=== PATIENT | female | born 1985 | race Caucasian/White ===

== ENCOUNTER 2024-06-22 21:01 | Outpatient (REF) | payer OTHER, SELFPAY | END 2024-06-22 21:02 | disposition home or self-care (01) | LOC: LAB 21:01 | PROVIDERS: Visit Provider Physician Assistant | DX: Z01.419 Encounter for gynecological examination (general) (routine) without abnormal findings (principal) | CPT/HCPCS: 87624; 88175 ==

== ENCOUNTER 2024-06-30 08:15 | Outpatient (OUT) | payer OTHER, SELFPAY ==
--- NOTE | 2024-06-30 08:17 | MM_ITS ---
Patient Name: TERRELL AMBROSE MR#: [id number] : 1985 Exam Date: 06/30/2024 Ordering Doctor: HARPER Plaza . RADIOLOGY REPORT PROCEDURE: MM TOMOSYNTHESIS SCREENING BI COMPARISON: None. INDICATIONS: Screening Calculator Name NCI Breast Cancer Risk Assessment Tool 5 Year Breast Cancer Risk 0.60% Lifetime Breast Cancer Risk 10.20% Personal Breast Cancer No Personal Ovarian Cancer No Treatments None Family Cancers Aunt-maternal with breast cancer at age ~64. LOCATION: The [facility] BREAST COMPOSITION: The breasts are extremely dense, which lowers the sensitivity of mammography. FINDINGS: DIAGNOSTIC CATEGORY 2--BENIGN FINDING: Scattered benign-appearing lymph nodes are present. RIGHT BREAST: No significant suspicious finding. LEFT BREAST: No significant suspicious finding. RECOMMENDATIONS: ROUTINE MAMMOGRAM AND CLINICAL EVALUATION IN 12 MONTHS. PLEASE NOTE: A NORMAL MAMMOGRAM DOES NOT EXCLUDE THE POSSIBILITY OF BREAST CANCER. A CLINICALLY SUSPICIOUS PALPABLE LUMP SHOULD BE BIOPSIED. Dictated by: Elijah Kaye MD on 06/30/2024 at 09:14 Approved by: Elijah Kaye MD on 06/30/2024 at 09:15
== END 2024-06-30 08:16 | disposition home or self-care (01) ==
LOC: MAMMO 08:15
PROVIDERS: Visit Provider Physician Assistant
DX: Z12.31 Encounter for screening mammogram for malignant neoplasm of breast (principal); Z80.3 Family history of malignant neoplasm of breast
CPT/HCPCS: 77063; 77067

== ENCOUNTER 2024-09-20 07:05 | Emergency (ER) | payer OTHER, SELFPAY ==
[2024-09-20] VITALS (18 sets, daily range): BP systolic 108–118; BP diastolic 64–82; PULSE 73–94; TEMP 36.9; O2SAT 97–100; BMI 18.2
--- OUTSIDE RECORDS SUMMARY | 2024-09-20 07:17 | XMS_ITS | CCD ---
Author Organization [facility] Care Team Providers Care Line Operator Name Role Phone AUGUSTO ., DR SALAZAR Admitting Unavailable AUGUSTO ., DR SALAZAR Attending Unavailable AUGUSTO ., DR SALAZAR Consulting Unavailable GISELLA VELAZQUEZ Attending Unavailable Problems Problem Classification Problem Date Documented Date Episodic/Chronic Immunizations and screening for infectious disease (1 source) Encounter for screening for human papillomavirus (HPV); Translations: [ENC SCREENING HUMAN PAPILLOMAVIRUS] Onset: 01-12-2023 Episodic Other screening for suspected conditions (not mental disorders or infectious disease) (4 sources) Encounter for screening for malignant neoplasm of cervix; Translations: [ENC SCREENING MALIG NEOPLASM CERV] Onset: 01-09-2023 Episodic Results Test Name Value Interpretation Reference Range Facil ity PAP ACOG PANEL 2: 30 to 65on 01-16-2023 . . Normal [facility] Comment on above: Result Comment: Performed at: WB Performed By: #### [id number] #### [facility] [address] [address] [address] Gutierrez Gay Age Gdln ACOG Testing 30-65 Normal [facility] Comment on above: Performed By: #### [id number] #### [facility] [address] [address] [address] Gutierrez Gay DIAGNOSIS: Comment Normal [facility] Comment on above: Result Comment: NEGATIVE FOR INTRAEPITHE LIAL LESION OR MALIGNANCY. Performed at: WB Performed By: #### [id number] #### [facility] [address] [address] [address] Gutierrez Gay HPV Aptima Negative Normal Negative [facility] Comment on above: Result Comment: This nucleic acid amplif ication test detects fourteen high-risk HPV types (16,18,31,33,35,39,45,51,52,56,58,59,66,68) without differentiation. Performed at: =G Performed By: #### [id number] #### [facility] [address] [place] [address] Dr. Gutierrez aGy HPV Genotype Reflex Comment Normal [facility] Comment on above: Result Comment: Criteria not met, HPV Ge notype not performed. Performed at: WB Performed By: #### [id number] #### [facility] [address] [place] [address] Dr. Gutierrez Gay Methodology: Comment Normal [facility] Comment on above: Result Comment: This liquid based ThinPr ep(R) pap test was screened with the use of an image guided system. Performed at: WB Performed By: #### [id number] #### [facility] [address] [place] [address] Dr. Gutierrez Gay Note: Comment Normal [facility] Comment on above: Result Comment: The Pap smear is a scree radha test designed to aid in the detection of premalignant and malignant conditions of the uterine cervix. It is not a diagnostic procedure and should not be used as the sole means of detecting cervical cancer. Both false-positive and false-negative reports do occur. . Performed at: WB Performed By: #### [id number] #### [facility] [address] [place] [address] Dr. Gutierrez Gay Performed by: Comment Normal [facility] Comment on above: Result Comment: Bethany Suggs Cytocalvin chnologist (ASCP) Performed at: WB Performed By: #### [id number] #### [facility] [address] [place] [address] Dr. Gutierrez Gay Specimen adequacy: Comment Normal [facility] Comment on above: Result Comment: Satisfactory for evaluat ion. Performed at: WB Performed By: #### [id number] #### [facility] [address] [place] [address] Dr. Gutierrez Gay Encounters Encounter Date Encounter Type Care Provider Facility Start: 06-22-2024 End: 06-22-2024 ambulatory GISELLA VELAZQUEZ Not Available Start: 01-09-2023 End: 01-09-[address] MARTIN CASAS . Facility:[facility] Payers Date Payer Category Payer Unknown [id number] 1985 Unknown [id number] 1985 Unknown [id number] 1961 Unknown [id number] Summary Purpose Family History No Family History Records FoundNo Family History Records Found Advance Directives No Advanced Directives Records FoundNo Advanced Directives Records Found Additional Source Comments INFORMATION SOURCE (unrecogn ized section and content) DATE CREATED AUTHOR 01/21/2023 [facility] DATE CREATED AUTHOR AUTHORLucien BECK 06/23/[address] [facility] EPIC FOR RECORDS PERTAINING TO PATIENTS WHO ARE OR HAVE BEEN ENROLLED IN A CHEMICAL DEPENDENCY/SUBSTANCEABUSE PROGRAM, SOME INFORMATION MAY BE OMITTED. This clinical summary was aggregated from multiple sources. Caution should be exercised in using it in the provision of clinical care. This summary normalizes information from multiple sources, and as a consequence, information in this document may materially change the coding, format and clinical context of patient data. In addition, data may be omitted in some cases. CLINICAL DECISIONS SHOULD BE BASED ON THE PRIMARY CLINICAL RECORDS. [facility] [employer] provides no warranty or guarantee of the accuracy or completeness of information in this document.
--- NOTE | 2024-09-20 07:27 | ECG_ITS ---
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
--- NOTE | 2024-09-20 07:28 | XR_ITS ---
The [address] [address] Patient Name: TERRELL AMBROSE MRN: [id number] date: 1985 Sex: F Assigned Patient Location: ER Current Patient Location: ED.MAIN Accession/Order Number: [id number] Exam Date: 09/20/2024 08:03 Report Date: 09/20/2024 08:30 At the request of: ROSHNI PENA Procedure: XR chest 1V EXAM: XR chest 1V HISTORY: Syncope. COMPARISON: None. TECHNIQUE: AP erect portable chest radiograph performed. FINDINGS: The trachea is midline. The heart size is normal. The cardiomediastinal silhouette and hilar shadows are within normal limits. There is no consolidation, pleural effusion or pulmonary vascular congestion. There is no pneumothorax. The osseous structures are unremarkable. XR/XR chest 1V IMPRESSION: Unremarkable AP erect portable chest radiograph. Electronically authenticated by: VIELKA COLLADO Date: 09/20/2024 08:30
--- NOTE | 2024-09-20 07:28 | CT_ITS ---
The [address] [address] Patient Name: TERRELL AMBROSE MRN: [id number] date: 1985 Sex: F Assigned Patient Location: ER Current Patient Location: ED.[facility] Accession/Order Number: [id number] Exam Date: 09/20/2024 08:03 Report Date: 09/20/2024 08:30 At the request of: ROSHNI PENA Procedure: CT head/brain wo con CT head/brain wo con, 09/20/2024 8:03 AM EST INDICATION: Syncope, hit head COMPARISON: There is no appropriate prior study for comparison. TECHNIQUE: Axial CT images of the brain from skull base to vertex, including portions of the face and sinuses, were obtained without contrast . Multiplanar reformatted images were generated and reviewed as needed. Dose reduction techniques were achieved by using automated exposure control and/or adjustment of mA and/or kV according to patient size and/or use of iterative reconstruction technique. FINDINGS: The cerebral sulci as well as ventricular system are appropriate for age. There is no intracranial mass, mass effect, midline shift, intra or extra-axial fluid collection or hemorrhage. The visualized portions of orbits, mastoid air cells as well as paranasal sinuses are unremarkable. There is no suspicious osteolytic or osteoblastic lesion. CT/CT head/brain wo con IMPRESSION: No acute intracranial process is noted. Electronically authenticated by: GABRIELA BURNS Date: 09/20/2024 08:30
--- NOTE | 2024-09-20 07:29 | ED_ITS ---
HPI - Syncope General Chief Complaint: Syncope Stated Complaint: SYNCOPE/ GENERAL WEAKNESS Time Seen by Provider: 09/20/24 07:15 Source: patient Mode of arrival: walk-in Limitations: no limitations History of Present Illness HPI narrative: 39-year-old female presented for syncopal episode. Some of the history is obtained from her and some from her . He was in the index room when this happened. The patient woke up at approximately 6:00 and had gone down to the basement to get some laundry and should come back upstairs. Her heard a loud noise and went into the next room and she was laying on her back on a vinyl floor and had apparently hit her head. Initially she had some head pain but it is better now and she has no neck pain. She felt a little bit dizzy before it happened. 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 Her day had started off normally. She had taken a NyQuil tablet last night because of some congestion and had not taken any other medications. Related Data Home Medications ?Medication ?Instructions ?Recorded ?Confirmed No Known Home Medications 09/20/24 09/20/24 Allergies Allergy/AdvReac Type Severity Reaction Status Date / Time No Known Drug Allergies Allergy Verified 09/20/24 07:15 Review of Systems ROS Narrative A ten point review of systems is negative except as noted above. Positive for mild congestion. PFSH PFSH Social History Little interest or pleasure in doing things: not at all Feeling down, depressed, or hopeless: not at all Exam Narrative Exam Narrative: Nurses note and vital signs reviewed and patient is not hypoxic. General: The patient appears well and in no apparent distress. Patient is resting comfortably on cart. Skin: Warm, dry, no pallor noted. There is no rash noted. Head: Normocephalic, atraumatic; C-spine nontender Eye: Normal conjunctiva, no drainage Ears, Nose, Mouth, and Throat: oral mucosa is moist. Nares patent. Cardiovascular: Regular Rate and Rhythm Respiratory: Patient is in no distress, no accessory muscle use, lungs are clear to auscultation, no wheezing, rales or rhonchi Back: non-tender GI: Soft and nontender Musculoskeletal: The patient has no evidence of calf tenderness, no pitting edema, symmetrical pulses noted bilaterally Neurological: A&O x4, normal speech; upper and lower extremity strength intact Psychiatric: Cooperative Constitutional Vital Signs, click to edit/add: Last Vital Signs Temp 98.4 F 09/20/24 07:15 Pulse 73 09/20/24 09:10 Resp 18 09/20/24 09:21 BP 114/68 09/20/24 09:00 Pulse Ox 98 09/20/24 09:21 O2 Del Method Room Air 09/20/24 07:15 Course Vital Signs Vital signs: Vital Signs Pulse Oximetry 100 09/20/24 07:12 Temperature 98.4 F 09/20/24 07:15 Pulse Rate 73 09/20/24 09:10 Respiratory Rate 18 09/20/24 09:21 Blood Pressure 114/68 09/20/24 09:00 Pulse Oximetry 98 09/20/24 09:21 Oxygen Delivery Method Room Air 09/20/24 07:15 MDM - Syncope MDM Narrative Medical decision making narrative: Her workup including 2 sets of troponin is negative. She seems to be asymptomatic now other than a headache and is ambulatory with normal vital signs. She is able to be discharged home. Treatment diagnosis and follow-up were discussed with the patient and her . Differential Diagnosis Differential diagnosis: Likely syncope due to orthostatic hypotension, vasovagal syncope and dehydration (Cardiac dysrhythmia) Lab Data Attestation: I reviewed the patient's lab results. Labs: Lab Results 09/20/24 09/20/24 Range/Units 07:20 08:43 WBC 9.8 (4.0-11.0) 10^3/uL RBC 4.68 (4.20-5.40) 10^6/uL Hgb 14.8 (12.0-16.0) g/dL Hct 43.0 (36.0-48.0) % MCV 91.9 (81.0-99.0) fL MCH 31.6 (26.7-34.0) pg MCHC 34.4 (29.9-35.2) g/dL RDW 11.7 (11.0-15.0) % Plt Count 324 (150-450) 10^3/uL MPV 9.5 (9.5-13.5) fL Neut % (Auto) 73.4 (43.0-75.0) % Lymph % (Auto) 17.2 L (20.5-60.0) % [place] % (Auto) 7.6 (1.7-12.0) % Eos % (Auto) 1.3 (0.9-7.0) % Baso % (Auto) 0.3 (0.2-2.0) % Neut # (Auto) 7.2 H (1.4-6.5) 10^3/uL Lymph # (Auto) 1.7 (1.2-3.8) 10^3/uL [place] # (Auto) 0.7 (0.3-0.8) 10^3/uL Eos # (Auto) 0.1 (0.0-0.7) 10^3/uL Baso # (Auto) 0.0 (0.0-0.1) 10^3/uL Abs Immat Gran (auto) 0.02 (0.00-0.03) 10^3/uL Imm/Tot Granulo (auto) 0.2 (0.0-0.5) % Sodium 140 (136-145) mmol/L Potassium 3.5 (3.5-5.1) mmol/L Chloride 105 (98-107) mmol/L Carbon Dioxide 23.9 (21.0-32.0) mmol/L Anion Gap 14.6 BUN 9.0 (7.0-18.0) mg/dL Creatinine 0.82 (0.55-1.02) mg/dL Est GFR ( Amer) >60 (>=60 mL/min/1.73m^2) Est GFR (Non-Af Amer) >60 (>=60 mL/min/1.73m^2) BUN/Creatinine Ratio 11.0 Glucose 110 H (74-106) mg/dL Calcium 8.6 (8.5-10.1) mg/dL Troponin I High Sens 4.1 6.0 (4.0-51.3) pg/mL Serum HCG, Qual Negative (NEGATIVE) Imaging Data Chest x-ray: Radiologist's impression: ITS Impressions Chest X-Ray 09/20/24 07:28 IMPRESSION: Unremarkable AP erect portable chest radiograph. Electronically authenticated by: VIELKA COLLADO Date: 09/20/2024 08:[address] 09/20/24 07:28 IMPRESSION: No acute intracranial process is noted. Electronically authenticated by: GABRIELA BURNS Date: 09/20/2024 08:30 ECG Data Attestation: I personally reviewed and interpreted this ECG as follows: (EKG on my interpretation shows sinus rhythm with rate of 91 and no acute change) Discharge Plan Discharge Chief Complaint: Syncope Clinical Impression: Syncope Patient Disposition: Home, Self-Care Time of Disposition Decision: 09:24 Condition: Good Mode of Transportation: Private Vehicle Prescriptions / Home Meds: No Action No Known Home Medications Print Language: Polish Instructions: Syncope (ED) Referrals: Physician,Non-Staff, MD [Physician] - 1 week
[2024-09-20 07:35] LABS: Basophils Percent Auto 0.3 % (0.2-2.0); Eosinophils Absolute Auto 0.1 10^3/uL (0.0-0.7); Eosinophils Percent Auto 1.3 % (0.9-7.0); Hemoglobin 14.8 g/dL (12.0-16.0); Immature Granulocytes Abs Auto 0.02 10^3/uL (0.00-0.03); Immature Granulocytes Pct Auto 0.2 % (0.0-0.5); Lymphocytes Absolute Auto 1.7 10^3/uL (1.2-3.8); Lymphocytes Percent Auto 17.2 % (20.5-60.0); Mean Corpuscular HGB Conc 34.4 g/dL (29.9-35.2); Mean Corpuscular Hemoglobin 31.6 pg (26.7-34.0); Mean Corpuscular Volume 91.9 fL (81.0-99.0); Mean Platelet Volume 9.5 fL (9.5-13.5); Monocytes Absolute Auto 0.7 10^3/uL (0.3-0.8); Monocytes Percent Auto 7.6 % (1.7-12.0); Neutrophils Absolute Auto 7.2 10^3/uL (1.4-6.5); Neutrophils Percent Auto 73.4 % (43.0-75.0); Platelet Count 324 10^3/uL (150-450); Red Blood Count 4.68 10^6/uL (4.20-5.40); Red Cell Distribution Width 11.7 % (11.0-15.0); White Blood Count 9.8 10^3/uL (4.0-11.0)
[2024-09-20 07:45] LABS: HCG Qualitative NEGATIVE (NEGATIVE); Internal Control Within Normal Limits
[2024-09-20 07:46] LABS: Anion Gap 14.6; Calcium 8.6 mg/dL (8.5-10.1); Carbon Dioxide 23.9 mmol/L (21.0-32.0); Chloride 105 mmol/L (98-107); Estimated GFR (African America >60 (>=60 mL/min/1.73m^2); Estimated GFR (Non-African Ame >60 (>=60 mL/min/1.73m^2); Glucose 110 mg/dL (74-106); Potassium 3.5 mmol/L (3.5-5.1); Sodium 140 mmol/L (136-145)
[2024-09-20] MEDS: ONDANSETRON PF 4 MG/2 ML VIAL IV (07:48)
[2024-09-20 07:54] LABS: Troponin I High Sensitivity 4.1 pg/mL (4.0-51.3)
[2024-09-20] MEDS: ACETAMINOPHEN 325 MG TABLET 650 MG PO (09:19)
== END 2024-09-20 09:27 | disposition home or self-care (01) ==
PROVIDERS: Emergency Provider Emergency Medicine; PCP Family Medicine
DX: R55 Syncope and collapse (principal)
CPT/HCPCS: 36415; 70450; 71045; 80048; 84484; 84703; 85025; 93005; 96374; 99285; J2405

== ENCOUNTER 2025-04-29 11:34 | Outpatient (OUT) | payer OTHER, SELFPAY ==
--- OUTSIDE RECORDS SUMMARY | 2025-04-26 08:45 | XMS_ITS | Encounter Summary ---
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 RGT nail removed a few years ago. Patient states she's tried OTC treatments in the past, but nothing recent. Encounter Details Date Type Department Care Team (Latest Contact Info) Description 04/26/2025 8:45 AM EDT Office Visit [facility] [address] [place] [address] Eliceo Greer, DPM [address] [place], [place] [id number] Dermatophytosis of nail (Primary Dx); Dystrophic nail; Pain around toenail, right foot; Pain around toenail, left foot Social History Tobacco Use Types Packs/Day Years Used Date Smoking Tobacco: Never Smokeless Tobacco: Never Tobacco Cessation:Counseling Given: No Alcohol Use Standard Drinks/Week Comments Yes 0 (1 standard drink = 0.6 oz pur e alcohol) occasionally Comments Unknown Sex and Gender Information Value Date Recorded Sex Assigned at Female 01/12/2024 11:12 AM EDT Legal Sex Female 11:12 AM EDT Gender Identity Female 01/12/2024 11:12 AM EDT Sexual Orientation Not on file documented as of this encounter Last Filed Vital Signs Vital Sign Reading Time Taken Comments Blood Pressure - - Pulse - - Temperature - - Respiratory Rate - - Oxygen Saturation - - Inhaled Oxygen Concentration - - Weight 54.1 kg (119 lb 3.2 oz) 04/26/2025 8:39 A M EDT Height 162.6 cm (5' 4 ) 04/26/2025 8:39 AM EDT Body Mass Index 20.46 04/26/2025 8:39 AM EDT documented in this encounter Patient Instructions * Patient Instructions* Eliceo Greer DPM - 04/26/2025 8:45 AM EDT As noted documented in this encounter Progress Notes * Eliceo Greer DPM - 04/26/2025 8:45 AM EDT Images from the original note were not included. Subjective Patient ID: Claribel Desouza is a 39 y.o. 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 RGT nail removed a few years ago. Patient states she's tried OTC treatments in the past, but nothing recent. ). HPI Initial patient encounter and assessment. Chief complaint: Thickened, deformed, discolored fungal toenails . Identifies bilateral great toes with gradual progressive deformity and fungal changes over the pastyear or so. Recently has noted mild discoloration of the 2nd digit right foot. Relates no specific history of injury or trauma. Patient has been an avid runner over the years; and had noted some changes with the toenails several years prior. Condition is symptomatic, describing pressure discomfort with footwear. Also complains of catching and snagging on clothing, bed sheets etc.. Relates a history of onychia this past year, requiring nail plate avulsion of the right great toe; with subsequent effective healing. Various OTC agents have provided no improvement. Self care measures are increasingly more difficult and less effective. Medications Current Outpatient Medications: Apri 0.15-30 MG-MCG tablet, TAKE 1 TABLET BY MOUTH EVERY DAY FOR 28 DAYS, Disp: 84 tablet, Rfl: 3 azithromycin (Zithromax Z-Antony) 250 MG tablet, As directed (Patient not taking: Reported on 04/26/2025), Disp: 6 tablet, Rfl: 0 Allergies Patient has no known allergies. Past Surgical History Past Surgical History: Procedure Laterality Date SECTION, CLASSIC 07/2012 Family History Family History Problem Relation Name Age of Onset No Known Problems Mother No Known Problems Father Objective General assessment: Alert and oriented. Pleasant disposition. Vascular: DP 2/4 bilateral. PT 2/4 bilateral. CFT brisk all digits. Gradient temperature: Warm-warm bilateral. Unremarkable for ankle edema. Neurologic: Tactile and light touch sensation intact. Dermatologic: Skin turgor is good. Web space areas are clean, dry, non-inflamed. Unremarkable for eczema or dermatitis. Bilateral great toes: TDO deformity with lunula involvement: Gross toenail dystrophy, hypertrophy, thickening, mild clubbing, discoloration, subtotal detachment, periungual and subungual keratotic and mycotic debris, without drainage. 2nd digit right foot: 25% DSO deformity. All remaining digits: Toenails are clear, non-dystrophic. There are no clinical signs of ulceration or open wound. Orthopedic: Range of motion: Functional ankle, subtalar and 1st MTP joint range of motion. Lesion pattern: No forefoot or digital discrete keratotic lesions are noted. Radiology: Assessment/Plan Symptomatic onychodystrophy/mycosis bilateral great toes. DSO deformity 2nd digit right foot. Plan: Review of clinical findings, differential diagnosis of toenail deformity and condition, etiology and contributing/aggravating factors, treatment strategy, rationale and objectives. Julian agreement to proceed with initial 90 day course oral terbinafine therapy. Review of overall efficacy, benefit/risk profile, anticipated time frame for effective nail plate clearing, potential for recalcitrance and/or relapse and the need for further oral therapy. Toenail fragments and subungual debris submitted for dermatophyte identification. Labs: Obtain hepatic enzymes prior to initiating therapy. Adjunctive topical care measures: Formula 7, preceded by use of vinegar and/or Listerine as directed. Hygiene and skin care measures discussed. Procedure: Toenail debridement: Aseptic technique: Hand and power instrumentation: Onychodebridement in length and thickness, with curettage of any cryptotic margins, all periungual debris; providingeffective symptom and pressure relief; reducing shoe and digital trauma; reducing fungal reservoir. This note was created with the assistance of a speech recognition program. While intending to generate a timely document that accurately reflects the content of the visit, no guarantee can be provided that every grammatical or spelling mistake has been or will be identified or corrected. Thank you for your understanding. Eliceo Greer DPM documented in this encounter Plan of Treatment Upcoming Encounters Date Type Department Care Team (Late st Contact Info) Description 06/27/2025 8:30 AM EDT Office Visit [facility] [address] [place] [address] Angel Butler, DO [address] [place] [address] 07/27/2025 8:30 AM EDT Procedure Visit [facility] [address] [place] [id number] Eliceo Greer DPM [address] [place] [address] Scheduled Orders Name Type Priority Associated Diagnoses Orde r Schedule ALT Lab Routine Dermatophytosis of nail Dystrophic nail Pain around toenail, right foot Pain around toenail, left foot Ordered: 04/26/2025 AST Lab Routine Dermatophytosis of nail Dystrophic nail Pain around toenail, right foot Pain around toenail, left foot Ordered: 04/26/2025 documented as of this encounter Visit Diagnoses Diagnosis Dermatophytosis of nail- Primary Dystrophic nail Other specified disease of nail Pain around toenail, right foot Pain around toenail, left foot documented in this encounter Care Teams Milling Machine Set Up Operator Relationship Specialty Start Date End Date Pamela Means MD [address] [facility] [address] [place] [address] PCP - General Family Medicine 02/25/23 [facility] PA [address] [place], [place] [id number] PCP - Medical Julian [employer] 02/18/24 10/19/99 documented as of this encounter
--- OUTSIDE RECORDS SUMMARY | 2025-04-29 11:37 | XMS_ITS | Encounter Summary ---
Author Organization [facility] Address [address] [facility] [place] [address] Care Team Providers Care Cigarette Lighter Repairer Name Role Phone Pamela Means MD Primary Care Provider [phone] [facility] Unavailable Encounter Details Date Type Department Care Team (Late Contact Info) Description 06/30/2024 Clinisync Result Encounter [facility] External Department Unsolicited [facility] PA [address] [facility] [address] [place], [facility]11 Social History Tobacco Use Types Packs/Day Years Used Date Smoking Tobacco: Never Assessed Comments Unknown Sex and Gender Information Value Date Recorded Sex Assigned at Female 01/12/2024 11:12 AM EDT Legal Sex Female 11:12 AM EDT Gender Identity Female 01/12/2024 11:12 AM EDT Sexual Orientation Not on file documented as of this encounter Plan of Treatment Upcoming Encounters Date Type Department Care Team (Late Contact Info) Description 06/27/2025 8:30 AM EDT Office Visit [facility] BCP OB [address] [facility] [place] [phone] Angel Butler DO [address] [place] [address] 07/27/2025 8:30 AM EDT Procedure Visit [facility] P[facility] [address] [place] [address] Eliceo Greer, DPM [address] [place] [address] documented as of this encounter Procedures Procedure Name Priority Date/Time Associated Diagnosis Comments MM TOMOSYNTHESIS SCREENING BI 06/30/2024 9:16 AM EDT documented in this encounter Results * MM TOMOSYNTHESIS SCREENING BI (06/30/2024 9:16 AM EDT) Anatomical Region Laterality Modality Other 06/30/2024 9:16 AM EDT Narrative 06/30/2024 9:17 AM EDT [address] [address] Mammography Report Signed Patient: CLARIBEL DESOUZA MR#: [id number] : 1985 Acct:[id number] Age/Sex: 38 / F ADM Date: 06/30/24 Loc: MAMMO Attending Dr: [facility] Ordering Physician: [facility] Results: Date of Service: 06/30/24 Follow Up: Procedure(s): MM tomosynthesis screening BI Accession Number(s): [id number] cc: [facility]; Physician,Non-Staff M.D. Patient Name: CLARIBEL DESOUZA MR#: [id number] : 1985 Exam Date: 06/30/2024 Ordering Doctor: HARPER Plaza . RADIOLOGY REPORT PROCEDURE: MM TOMOSYNTHESIS SCREENING BI COMPARISON: None. INDICATIONS: Screening Calculator Name NCI Breast Cancer Risk Assessment Tool 5 Year Breast Cancer Risk 0.60% Lifetime Breast Cancer Risk 10.20% Personal Breast Cancer No Personal Ovarian Cancer No Treatments None Family Cancers Aunt-maternal with breast cancer at age 64. LOCATION: The [facility] BREAST COMPOSITION: The breasts are extremely dense, which lowers the sensitivity of mammography. FINDINGS: DIAGNOSTIC CATEGORY 2--BENIGN FINDING: Scattered benign-appearing lymph nodes are present. RIGHT BREAST: No significant suspicious finding. LEFT BREAST: No significant suspicious finding. RECOMMENDATIONS: ROUTINE MAMMOGRAM AND CLINICAL EVALUATION IN 12 MONTHS. PLEASE NOTE: A NORMAL MAMMOGRAM DOES NOT EXCLUDE THE POSSIBILITY OF BREAST CANCER. A CLINICALLY SUSPICIOUS PALPABLE LUMP SHOULD BE BIOPSIED. Dictated by: Elijah Kaye MD on 06/30/2024 at 09:14 Approved by: Elijah Kaye MD on 06/30/2024 at 09:15 Dictated By: Elijah Kaye M.D. Signed By: 06/30/24916 DD/ 5 TD/TT: Brass Wind Instrument Maker: Procedure Note Radiology, Radiologist, MD - 06/30/2024 [place] [address] Mammography Report Signed Patient: CLARIBEL DESOUZA NMR#: [id number] : 1985Acct:[id number] Age/Sex: 38 / FADM Date: 06/30/24 Loc: MAMMO Attending Dr: [facility]laly Plaza Ordering Physician: Citlaly PlazaResults: Date of Service: 06/30/24Follow Up: Procedure(s): MM tomosynthesis screening BI Accession Number(s): [id number] cc: [facility]; Physician,Non-Staff Murtaza Patient Name: CLARIBEL DESOUZA MR#: [id number] : 1985 Exam Date: 06/30/2024 Ordering Doctor: HARPER Plaza . RADIOLOGY REPORT PROCEDURE: MM TOMOSYNTHESIS SCREENING BI COMPARISON: None. INDICATIONS: Screening Calculator Name NCI Breast Cancer Risk Assessment Tool 5 Year Breast Cancer Risk 0.60% Lifetime Breast Cancer Risk 10.20% Personal Breast Cancer No Personal Ovarian Cancer No Treatments None Family Cancers Aunt-maternal with breast cancer at age 64. LOCATION: The [facility] BREAST COMPOSITION: The breasts are extremely dense, which lowers the sensitivity of mammography. FINDINGS: DIAGNOSTIC CATEGORY 2--BENIGN FINDING: Scattered benign-appearing lymphnodes are present. RIGHT BREAST: No significant suspicious finding. LEFT BREAST: No significant suspicious finding. RECOMMENDATIONS: ROUTINE MAMMOGRAM AND CLINICAL EVALUATION IN 12 MONTHS. PLEASE NOTE: A NORMAL MAMMOGRAM DOES NOT EXCLUDE THE POSSIBILITY OFBREAST CANCER. A CLINICALLY SUSPICIOUS PALPABLE LUMP SHOULD BE BIOPSIED. Dictated by: Elijah Kaye MD on 06/30/2024 at 09:14 Approved by: Elijah Kaye MD on 06/30/2024 at 09:15 Dictated By: Elijah Kaye M.D. Signed By:06/30/24916 DD/ 5 TD/TT: Brass Wind Instrument Maker: us [facility] Final Result documented in this encounter Visit Diagnoses Not on filedocumented in this encounter Care Teams Cigarette Lighter Repairer Relationship Specialty Start Date End Date Pamela Means MD 112 [facility] 110 [place] [address] PCP - General Family Medicine 02/25/23 [facility] PA [address] [facility] [place] [address] PCP - Medical [place] [employer] 02/18/24 10/19/99 documented as of this encounter
--- OUTSIDE RECORDS SUMMARY | 2025-04-29 11:37 | XMS_ITS | Encounter Summary ---
Author Organization [facility] Address [address] [facility] [place] [address] Care Team Providers Care Digital Advertising Analyst Name Role Phone Pamela Means MD Primary Care Provider [phone] [facility] Unavailable Encounter Details Date Type Department Care Team (Late Contact Info) Description 04/26/2025 Bamboo flowsheet [facility] 1900 [place] [address] Eliceo Greer, DPM [address] [place], [place] [phone] Social History Tobacco Use Types Packs/Day Years Used Date Smoking Tobacco: Never Smokeless Tobacco: Never Alcohol Use Standard Drinks/Week Comments Yes 0 [...] EDT Office Visit [facility] B[facility] OB [address] [facility] [place] [phone] Angel Butler DO [address] [place], [place] [address] 07/27/2025 8:30 AM EDT Procedure Visit [facility] [address] [facility] [place] [address] Eliceo Greer DPM [address] [place], [place] [address] documented as of this encounter Visit Diagnoses Not on filedocumented in this encounter Care Teams Digital Advertising Analyst Relationship Specialty Start Date End Date Pamela Means MD 112 [facility] 110 [place] [address] PCP - General Family Medicine 02/25/23 [facility] PA [address] [facility] [place] [address] PCP - Medical [place] [employer] 02/18/24 10/19/99 documented as of this encounter
--- OUTSIDE RECORDS SUMMARY | 2025-04-29 11:37 | XMS_ITS | Encounter Summary ---
Author Organization [facility] Address [address] [facility] [place] [address] Care Team Providers Care Neuropsychology Service Director Name Role Phone Pamela Means MD Primary Care Provider [phone] [facility] Unavailable Encounter Details Date Type Department Care Team ([facility] Contact Info) Description 09/21/2024 Abstract [facility] FM 112 [facility] 110 [place] [phone] Pamela Means MD 112 [facility] 110 [place], [place] [phone] Social History Tobacco Use Types Packs/Day Years Used Date Smoking Tobacco: Never Assessed Comments Unknown Sex and Gender Information Value Date Recorded Sex Assigned at Female 01/12/2024 11:12 AM EDT Legal Sex Female 11:12 AM EDT Gender Identity Female 01/12/2024 11:12 AM EDT Sexual Orientation Not on file documented as of this encounter Plan of Treatment Upcoming Encounters Date Type Department Care Team ([facility] Contact Info) Description 06/27/2025 8:30 AM EDT Office Visit [facility] BCP OB [address] [place] [address] Angel Butler DO [address] [place] [address] 07/27/2025 8:30 AM EDT Procedure Visit [facility] POD[facility] [address] [place] [address] Eliceo Greer, DPLili [address] [place] [address] documented as of this encounter Visit Diagnoses Not on filedocumented in this encounter Care Teams Neuropsychology Service Director Relationship Specialty Start Date End Date Pamela Means MD 112 [facility] 110 [place] [address] PCP - General Family Medicine 02/25/23 [facility] PA [address] [facility] [place] [address] PCP - Medical [place] [employer] 02/18/24 10/19/99 documented as of this encounter
--- OUTSIDE RECORDS SUMMARY | 2025-04-29 11:37 | XMS_ITS | Encounter Summary ---
Author Organization [facility] Address [address] [facility] [place] [address] Care Team Providers Care Registered Nurse Obstetrics Name Role Phone Pamela Means MD Primary Care Provider [facility] Unavailable Encounter Details Date Type Department Care Team (Latest Contact Info) Description 04/25/2025 Travel Social History Tobacco Use Types Packs/Day Years [...] 06/27/2025 8:30 AM EDT Office Visit [facility] OB [address] [facility] [place] [address] Angel Butler, DO [address] [facility] [place] [address] 07/27/2025 8:30 AM EDT Procedure Visit [facility] [address] [place] [address] Eliceo Greer DPM [address] [place], [place] [phone] documented as of this encounter Visit Diagnoses Not on filedocumented in this encounter Care Teams Registered Nurse Obstetrics Relationship Specialty Start Date End Date Pamela Means MD 112 [facility] 110 [place] [address] PCP - General Family Medicine 02/25/23 [facility] PA [address] [facility] [place] [address] PCP - Medical [place] [employer] 02/18/24 10/19/99 documented as of this encounter
--- OUTSIDE RECORDS SUMMARY | 2025-04-29 11:37 | XMS_ITS | Encounter Summary ---
Author Organization [facility] Address [address] [facility] [place] [address] Care Team Providers Care Marina Dry Dock Manager Name Role Phone Pamela Means MD Primary Care Provider [phone] [facility] Unavailable Encounter Details Date Type Department Care Team (Latest Contact Info) Description 04/26/2025 Travel Social History Tobacco Use Types Packs/Day [...] EDT Office Visit [facility] BCP OB [address] [place] [address] Angel Butler, DO [address] [facility] [place] [address] 07/27/2025 8:30 AM EDT Procedure Visit [facility] [address] [place] [address] Eliceo Greer, MELANIE [address] [facility] [address] documented as of this encounter Visit Diagnoses Not on filedocumented in this encounter Care Teams Marina Dry Dock Manager Relationship Specialty Start Date End Date Pamela Means MD [address] [address] PCP - General Family Medicine 02/25/23 [facility] PA [address] [facility] [place] [address] PCP - Medical [place] [employer] 02/18/24 10/19/99 documented as of this encounter
--- OUTSIDE RECORDS SUMMARY | 2025-04-29 11:37 | XMS_ITS | Encounter Summary ---
Author Organization [facility] Address [address] [facility] [place] [address] Care Team Providers Care Marine Rigger Name Role Phone Pamela Means MD Primary Care Provider [phone] [facility] Unavailable Encounter Details Date Type Department Care Team (Late Contact Info) Description 06/28/2024 Orders Only [facility] OB [address] [facility] [place] [address] Aleida Bran LPN [address] [place] [id number] Social History Tobacco Use Types Packs/Day Years [...] EDT Office Visit [facility] BCP OB [address] [facility] [place] [place] [address] Angel Butler DO [address] [place] [address] [place] [address] 07/27/2025 8:30 AM EDT Procedure Visit [place] [address] Eliceo Greer, DPM [address] [place] [address] documented as of this encounter Procedures Procedure Name Priority Date/Time Associated Diagnosis Comments PAP SMEAR Routine 06/22/2024 12:00 AM EDT documented in this encounter Results * Pap Smear (06/22/2024 12:00 AM EDT) Swab Cervical swab / Unknown us Angel Carrie DO LAB CYTOLOGY ORDERABLES Final Re sult EXTERNAL LAB documented in this encounter Visit Diagnoses Not on filedocumented in this encounter Care Teams Marine Rigger Relationship Specialty Start Date End Date Pamela Means MD 112 [facility] 110 [place] [address] PCP - General Family Medicine 02/25/23 [facility] PA [address] [facility] [place] [address] PCP - Medical [place] [employer] 02/18/24 10/19/99 documented as of this encounter
--- OUTSIDE RECORDS SUMMARY | 2025-04-29 11:37 | XMS_ITS | Encounter Summary ---
Author Organization [facility] Address [address] [facility] [place] [address] Care Team Providers Care Interactive Multimedia Designer Name Role Phone Pamela Means MD Primary Care Provider [phone] [facility] Unavailable Encounter Details Date Type Department Care Team (Latest Contact Info) Description 04/21/2025 Travel Social History Tobacco Use Types Packs/Day [...] 06/27/2025 8:30 AM EDT Office Visit [facility] OB [address] [facility] [place] [address] Angel Butler, DO [address] [facility] [place] [address] 07/27/2025 8:30 AM EDT Procedure Visit [facility] POD[facility] [address] [place] [address] Eliceo Greer DPM [address] [place], [place] [phone] documented as of this encounter Visit Diagnoses Not on filedocumented in this encounter Care Teams Interactive Multimedia Designer Relationship Specialty Start Date End Date Pamela Means MD 112 [facility] 110 [place] [address] PCP - General Family Medicine 02/25/23 [facility] PA [address] [facility] [place] [address] PCP - Medical [place] [employer] 02/18/24 10/19/99 documented as of this encounter
--- OUTSIDE RECORDS SUMMARY | 2025-04-29 11:37 | XMS_ITS | Clinical Summary ---
Author Organization [facility] Address [address] [place] [address] Care Team Providers Care Shoe Cobbler Name Role Phone Pamela Means MD Primary Care Provider [facility] Unavailable Allergies No known active allergies Medications Apri 0.15-30 MG-MCG tabletIndicatio ns:Other specified health status TAKE 1 TABLET BY MOUTH EVERY DAY FOR 28 DAYS 84 tablet 3 5 Active azithromycin (Zithromax Z-Antony) 250 MG tabletIndicatio ns:URI, acute As directed 6 tablet 5 Active Additional Information Patient not taking.Reported on 04/26/2025 Active Problems No known active problems Encounters Date Type Department Care Team Description 04/26/2025 8:45 AM EDT Office Visit [facility] [address] [facility] [place] [address] Eliceo Greer DPM Dermatophytosis of nail (Primary Dx); Dystrophic nail; Pain around toenail, right foot; Pain around toenail, left foot 04/26/2025 Bamboo [facility] [address] [place] [address] Eliceo Greer DPM 04/26/2025 Travel 04/25/2025 Travel 04/21/2025 Travel from Last 3 Months Family History Medical History Relation Name Comments No Known Problems Father No Known Problems Mother Relation Name Status Comments Father Mother Social History Tobacco Use Types Packs/Day Years [...] AM EDT Sexual Orientation Not on file Last Filed Vital Signs Vital Sign Reading Time Taken Comments Blood Pressure 112/70 06/22/2024 1:12 PM EDT Pulse - - Temperature - - Respiratory Rate - - Oxygen Saturation - - Inhaled Oxygen Concentration - - Weight 54.1 kg (119 lb 3.2 oz) 04/26/2025 8:39 A M EDT Height 162.6 cm (5' 4 ) 04/26/2025 8:39 AM EDT Body Mass Index 20.46 04/26/2025 8:39 AM EDT Plan of Treatment Upcoming Encounters Date Type Department Care Team (Late st Contact Info) Description 06/27/2025 8:30 AM EDT Office Visit [facility] OB [address] [facility] [place] [address] Angel Butler DO [address] [facility] [address] Ad[address] [place], [place] [address] 07/27/2025 8:30 AM EDT Procedure Visit [facility] PODI[facility] [address] [place] [address] Eliceo Greer, DPLili 1900 [place], [place] [phone] Health Maintenance Due Date Last Done Comments Influenza Vaccine (#1) 2025 Mammogram 06/30/2025 06/30/2024 Pap Smear 06/22/2027 06/22/2024, 01/09/2023 Cervical Cancer Screening 01/10/2028 HPV/Cotest 01/10/2028 Procedures Procedure Name Priority Date/Time Associated Diagnosis Comments MM TOMOSYNTHESIS SCREENING BI 06/30/2024 9:16 AM EDT PAP SMEAR Routine 06/22/2024 12:00 AM EDT from Last 3 Months or Most Recently Relevant to Health Maintenance Results * MM TOMOSYNTHESIS SCREENING BI (06/30/2024 9:16 AM EDT) Anatomical Region Laterality Modality Other 06/30/2024 9:16 AM EDT Narrative 06/30/2024 9:17 [place] [address] Mammography Report Signed Patient: CLARIBEL AMBROSE MR#: [id number] : 1985 Acct:[id number] Age/Sex: 38 / F ADM Date: 06/30/24 Loc: MAMMO Attending Dr: Citlaly Plaza Ordering Physician: [facility] Results: Date of Service: 06/30/24 Follow Up: Procedure(s): MM tomosynthesis screening BI Accession Number(s): [id number] cc: [facility]; Physician,Non-Staff M.DClarence Patient Name: CLARIBEL AMBROSE MR#: [id number] : 1985 Exam Date: 06/30/2024 Ordering Doctor: HARPER Plaza . RADIOLOGY REPORT PROCEDURE: MM TOMOSYNTHESIS SCREENING BI COMPARISON: None. INDICATIONS: Screening Calculator Name NCI Breast Cancer Risk Assessment Tool 5 Year Breast Cancer Risk 0.60% Lifetime Breast Cancer Risk 10.20% Personal Breast Cancer No Personal Ovarian Cancer No Treatments None Family Cancers Aunt-maternal with breast cancer at age 64. LOCATION: The [facility] BREAST COMPOSITION: The breasts are extremely dense, [...] M.D. Signed By: 06/30/24916 DD/ 5 TD/TT: Sponsorship Coordinator: Procedure Note Radiology, Radiologist, MD - 06/30/2024 The [place] [id number] Mammography Report Signed Patient: CLARIBEL AMBROSE NMR#: [id number] : 1985Acct:[id number] Age/Sex: 38 / FADM Date: 06/30/24 Loc: MAMMO Attending Dr: Citlaly Plaza Ordering Physician: Citlaly PlazaResults: Date of Service: 06/30/24Follow Up: Procedure(s): MM tomosynthesis screening BI Accession Number(s): [id number] cc: [facility]; Physician,Non-Staff Murtaza Patient Name: CLARIBEL AMBROSE MR#: [id number] : 1985 Exam Date: 06/30/2024 Ordering Doctor: HARPER Plaza . RADIOLOGY REPORT PROCEDURE: MM TOMOSYNTHESIS SCREENING BI COMPARISON: None. INDICATIONS: Screening Calculator Name NCI Breast Cancer Risk Assessment Tool 5 Year Breast Cancer Risk 0.60% Lifetime Breast Cancer Risk 10.20% Personal Breast Cancer No Personal Ovarian Cancer No Treatments None Family Cancers Aunt-maternal with breast cancer at age 64. LOCATION: The [facility] BREAST COMPOSITION: The breasts are extremely dense, [...] Kaye M.D. Signed By:06/30/24916 DD/ 5 TD/TT: Sponsorship Coordinator: [facility] Final Result * Pap Smear (06/22/2024 12:00 AM EDT) Swab Cervical swab / Unknown Angel Butler DO LAB CYTOLOGY ORDERABLES Final Re sult EXTERNAL LAB from Last 3 Months or Most Recently Relevant to Health Maintenance Insurance [employer] Care Teams Shoe Cobbler Relationship Specialty Start Date End Date Pamela Means MD [address] [address] PCP - General Family Medicine 02/25/23 [facility] PA [address] [place] [address] [place] [address] PCP - Medical [place] [employer] 02/18/24 10/19/99
--- OUTSIDE RECORDS SUMMARY | 2025-04-29 11:59 | XMS_ITS | CCD ---
Author Organization [facility] Care Team Providers Care Process Project Engineer Name Role Phone AUGUSTO ., DR SALAZAR Admitting Unavailable AUGUSTO Lima, DR SALAZAR Attending Unavailable AUGUSTO ., DR SALAZAR Consulting Unavailable CITLALY VELAZQUEZ Attending Unavailable Pamela Means MD Primary Care Provider Citlaly Arizmendi Unavailable Medications Current Medications Medication Drug Class(es) Dates Sig (Normalized) Sig (Original) azithromycin 250 mg oral tablet (3 sources) Macrolide Antimicrobial Start: 12-29-2024 azithromycin (Zithromax Z-Antony) 250 MG tablet Indications: URI, acute As directed 6 tablet 12/29/2024 Active desogestrel 0.15 mg / ethinyl estradiol 0.03 mg oral tablet (7 sources) Progestin, Estrogen Start: 12-20-2024 take 1 tablet by mouth once daily Apri 0.15-30 MG-MCG tablet Indications: Other specified health status TAKE 1 TABLET BY MOUTH EVERY DAY FOR 28 DAYS 84 tablet 3 12/20/2024 Active Start: 01-13-2024 take 1 tablet by janessa once daily Apri 0.15-30 MG-MCG tablet Indications: Other specified health status TAKE 1 TABLET BY MOUTH EVERY DAY FOR 28 DAYS 84 tablet 3 01/13/2024 Active Problems Active Problems Problem Classification Problem Date Documented Date Episodic/Chronic Immunizations and screening for infectious disease (1 source) Encounter for screening for human papillomavirus (HPV); Translations: [ENC SCREENING HUMAN PAPILLOMAVIRUS] Onset: 01-12-2023 Episodic Mycoses (2 sources) Onychomycosis due to dermatophyte ; Translations: [Tinea unguium] 04-26-2025 Episodic Other connective tissue disease (4 sources) Pain in toe; Translations: [Pain in right toe(s)] 04-26-2025 Episodic Other skin disorders (2 sources) Dystrophia unguium; Translations: [Nail dystrophy] 04-26-2025 Episodic Past or Other Problems Problem Classification Problem Date Documented Da te Episodic/Chronic Other screening for suspected conditions (not mental disorders or infectious disease) (6 sources) Encounter for screening for malignant neoplasm of cervix; Translations: [Patient encounter status] Onset: 01-09-2023 Episodic Results Test Name Value Interpretation Reference Range Facil ity IGP,APTIMA HPV,AGE GDLNon AGE GDLN ACOG TESTING Note . [facility] Comment on above: TESTS RESULT FLAG UNITS REF RANGE LAB Clinician Provided Cytology Information Source.............Cervix;Endocervix No. of containers..01 ThinPrep Vial Age Algo ACOG Renetta... 30-65 01 FLAG LEGEND: L-Low Normal,H-High Normal,LL-Alert Low,HH-Alert High <-Panic Low,>-Panic High,A-Abnormal,AA-Critical Abnormal Performed at: 01 =G [facility] [address] [address] Maru Durham MD, HPV APTIMA Negative Negative [facility] Comment on above: This nucleic acid amplification test det ects fourteen high- risk HPV types (16,18,31,33,35,39,45,51,52,56,58,59,66,68) without differentiation. Performed at: =G - [facility], [place] [id number] Rough Rib Grader: Maru Durham MD, Phone: [phone] Performed at: [facility] [address] [place], [place] [id number] Rough Rib Grader: Rico Tay MD, Phone: [phone] IGP, APTIMA HPV, RFX 16/18,45 Note . [facility] Comment on above: TESTS RESULT FLAG UNITS REF RANGE LAB DIAGNOSIS: 02 NEGATIVE FOR INTRAEPITHELIAL LESION OR MALIGNANCY. Specimen adequacy: 02 Satisfactory for evaluation. Endocervical and/or squamous metaplastic cells (endocervical component) are present. Performed by: 02 Dilia Snyder, Fire Sprinkler Installer ([facility]) . 02 Note: Note 03 The Pap smear is a screening test designed to aid in the detection of premalignant and malignant conditions of the uterine cervix. It is not a diagnostic procedure and should not be used as the sole means of detecting cervical cancer. Both false-positive and false-negative reports do occur. Test Methodology: Note 03 This liquid based ThinPrep(R) pap test was screened with the use of an image guided system. HPV Genotype Reflex Note 02 Criteria not met, HPV Genotype not performed. FLAG LEGEND: L-Low Normal,H-High Normal,LL-Alert Low,HH-Alert High <-Panic Low,>-Panic High,A-Abnormal,AA-Critical Abnormal Performed at: 02 [facility] [address] [address] [place] [address] Rico Tay MD, 03 WB [facility] [address] [address] Maru Durham MD, BRUSH-SPATULA CERVIX ENDOCERVIX CLINIS[facility]CT [facility] PAP ACOG PANEL 2: 30 to 65on 01-16-2023 . . Normal [facility] Comment on above: Result Comment: Performed at: WB Performed By: #### [id number] #### [facility] [address] [address] [address] Gutierrez Gay Age Gdln ACOG Testing [facility] Comment on above: Performed By: #### [id number] #### [facility] [address] [address] [address] Gutierrez Gay DIAGNOSIS: Comment Normal [facility] Comment on above: Result Comment: NEGATIVE FOR INTRAEPITHE LIAL LESION OR MALIGNANCY. Performed at: WB Performed By: #### [id number] #### [facility] [address] [address] [address] Gutierrez Gay HPV Aptima Negative Normal Negative [facility] Comment on above: Result Comment: This nucleic acid amplif ication test detects fourteen high-risk HPV types (16,18,31,33,35,39,45,51,52,56,58,59,66,68) without differentiation. Performed at: =G Performed By: #### [id number] #### [facility] [address] [address] [address] Gutierrez Gay HPV Genotype Reflex Comment Normal [facility] Comment on above: Result Comment: Criteria not met, HPV Ge notype not performed. Performed at: WB Performed By: #### [id number] #### [facility] [address] [address] [address] Gutierrez Gay Methodology: Comment Normal [facility] Comment on above: Result Comment: This liquid based ThinPr ep(R) pap test was screened with the use of an image guided system. Performed at: WB Performed By: #### [id number] #### [facility] [address] [place] [address] Dr. Gutierrez Gay Note: Comment Normal [facility] Comment on above: Result Comment: The Pap smear is a scree radha test designed to aid in the detection of premalignant and malignant conditions of the uterine cervix. It is not a diagnostic procedure and should not be used as the sole means of detecting cervical cancer. Both false-positive and false-negative reports do occur. . Performed at: WB Performed By: #### [id number] #### [facility] [address] [place] [address] Dr. Gutierrez Gay Performed by: Comment Normal [facility] Comment on above: Result Comment: Bethany Suggs Cytote chnologist (ASCP) Performed at: WB Performed By: #### [id number] #### [facility] [address] [place] [address] Dr. Gutierrez Gay Specimen adequacy: Comment Normal [facility] Comment on above: Result Comment: Satisfactory for evaluat ion. Performed at: WB Performed By: #### [id number] #### [facility] [address] [place] [address] Dr. Gutierrez Gay Vital Signs Date Time Vital Sign Value Performing Clinician Jen hines 04-26-2025 08:39-0400 Body height 162.6 cm Eliceo Greer DPM Work Phone: [facility] 04-26-2025 08:39-0400 Body mass index (BMI) [Ratio] 20.46 kg/m2 Eliceo Greer DPM Work Phone: [facility] 04-26-2025 08:39-0400 Body weight 54.07 kg Eliceo Greer DPM Work Phone: [facility] 06-22-2024 13:12-0400 Body mass index (BMI) [Ratio] 20.46 kg/m2 Citlaly SALEEM Work Phone: [facility] 06-22-2024 13:12-0400 Body weight 54.07 kg Citlaly SALEEM Work Phone: [facility] 06-22-2024 13:12-0400 Diastolic blood pressure 70 mm[Hg] Citlaly SALEEM Work Phone: [facility] 06-22-2024 13:12-0400 Systolic blood pressure 112 mm[Hg] Citlaly SALEEM Work Phone: [facility] Encounters Encounter Date Encounter Type Care Provider Facility Start: 04-26-2025 End: 04-26-2025 Bamboo flowsheet Eliceo Greer DPM Work Phone: [facility] Start: 04-26-2025 End: 04-26-2025 Bamboo flowsheet Eliceo Greer DPM Work Phone: [facility] Start: 04-26-2025 End: 04-26-2025 Office outpatient new 30 minutes Eliceo Greer DPM Work Phone: [facility] Comment on above: Dermatophytosis of n ail (Primary Dx); Dystrophic nail; Pain around toenail, right foot; Pain around toenail, left foot Start: 06-22-2024 End: 06-22-2024 Bamboo flowsheet Citlaly SALEEM Work Phone: [facility] Start: 06-22-2024 End: 06-25-2024 Bamboo flowsheet Citlaly SALEEM Work Phone: [facility] Start: 06-22-2024 End: 06-25-2024 [facility] Result Encounter Citlaly SALEEM Work Phone: [facility] External Department Unsolicited Start: 06-22-2024 End: 06-22-2024 Patient encounter procedure Citlaly SALEEM Work Phone: [facility] Work Phone: Start: 06-22-2024 End: 06-22-2024 Periodic preventive med est patient 40-64yrs Citlaly SALEEM Work Phone: [facility] Comment on above: Well woman exam with routine gynecological exam; Breast cancer screening by mammogram Start: 06-22-2024 End: 06-22-2024 ambulatory CITLALY VELAZQUEZ Not Available Start: 01-09-2023 End: 01-09-[address] MARTIN BUTLER . Facility: Procedures Date Procedure Procedure Detail Performing Clinician Start: 06-30-2024 Mammography Eliceo pereyra DPM Work Phone: Start: 06-22-2024 IGP,APTIMA HPV,AGE GDLN Citlaly Velazquez PA Work Phone: Start: 06-22-2024 Microscopic observat ion [Identifier] in Cervix by Cyto stain Eliceo Greer DPM Work Phone: Start: 01-09-2023 Microscopic observat ion [Identifier] in Cervix by Cyto stain Citlaly Velazquez PA Work Phone: Plan of Treatment Date Care Activity Detail Author Start: 01-10-2028 Screening for malign ant neoplasm of cervix [facility] Start: 06-22-2027 Screening for malign ant neoplasm of cervix Pap Smear [facility] Start: 07-27-2025 End: 07-27-2025 Patient encounter procedure 07/27/2025 8:30 AM EDT Procedure Visit [facility] [address] [place] [id number] Eliceo Greer, DPM [address] [place] [address] [facility] Start: 06-30-2025 Screening for malign ant neoplasm of breast Mammogram [facility] Start: 06-27-2025 End: 06-27-2025 Patient encounter procedure 06/27/2025 8:30 AM EDT Office Visit [facility] [address] [address] Martin Butler, DO [address] [place] [address] [facility] Start: 06-20-2025 Influenza vaccination Influenza Vacc ine (#1) [facility] Start: 04-26-2025 End: 04-26-2025 Patient encounter procedure 04/26/2025 8:45 AM EDT Office Visit [facility] [address] [place] [address] Eliceo Greer, DPLili [address] [place], [place] [id number] Arrived [facility] Comment on above: Arrived Start: 06-22-2024 End: 08-22-2025 MG Breast - bilateral Screening Bilateral screening mammogram Imaging Routine Breast cancer screening by mammogram Expected: 06/22/2024 (Approximate), Expires: 08/22/2025 [facility] Work Phone: Comment on above: Expected: 06/22/2024 (Approximate), Expires: 08/22/2025 Start: 06-22-2024 End: 06-22-2024 Patient encounter procedure 06/22/2024 1:00 PM EDT Office Visit [facility] [address] [place] [address] Citlaly Velazquez PA [address] [facility] [address] [place], [place] [id number] Arrived [facility] Comment on above: Arrived Start: 06-20-2024 Influenza vaccination Influenza Vacc ine (#1) [facility] Start: 2023 Screening for malign ant neoplasm of breast Mammogram [facility] Alanine aminotransfe rase [Enzymatic activity/volume] in Serum or Plasma ALT Lab Routine Dermatophytosis of nail Dystrophic nail Pain around toenail, right foot Pain around toenail, left foot Ordered: 04/26/2025 [facility] Work Phone: Comment on above: Ordered: 04/26/2025 Aspartate aminotransferase [Enzymatic activity/volume] in Serum or Plasma AST Lab Routine Dermatophytosis of nail Dystrophic nail Pain around toenail, right foot Pain around toenail, left foot Ordered: 04/26/2025 [facility] Comment on above: Ordered: 04/26/2025 THIN PREP TIS PAP AN D HR HPV DNA THIN PREP TIS PAP AND HR HPV DNA Pathology and Cytology Routine Well woman exam with routine gynecological exam Ordered: 06/22/2024 [facility] Comment on above: Ordered: 06/22/2024 Payers Date Payer Category Payer Private Health Insurance [employer] [id number] 2024 Unknown [employer] [id number] 2024-Present [address] [place] [address] [id number] 2024 Unknown [id number] 1983 Unknown [id number] 1983 Unknown [id number] 1959 Unknown [id number] Social History Date Type Detail Facility Tobacco smoking stat [facility] Tobacco smoking consumption unknown [facility] Start: 1985 Sex assigned at Female [facility] Start: 01-12-2024 Gender identity Identifies as female gender (finding) [facility] Start: 04-26-2025 Sexual orientation Not on file [facility] Start: 04-26-2025 [facility] Start: 04-26-2025 Tobacco use and exposure Smokeless t obacco non-user [facility] Start: 04-26-2025 Alcoholic beverage intake Curr ent drinker of alcohol (finding) [facility] Start: 04-26-2025 History of Social function [facility] Start: 04-26-2025 Alcohol Comment occasionally [facility] History of Present illness Narrative 04-26-2025 Eliceo Greer, DPM - 04/26/2025 8:45 AM EDT Note Date & Type Note Facility 04-26-2025 History of Presen t illness Narrative Images from the original note were not included. Subjective Patient ID: Claribel Desouza is a 39 y.o. 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 RGT nail removed a few years ago. Patient states she's tried OTC treatments in the past, but nothing recent. ). HPI Initial patient encounter and assessment. Chief complaint: Thickened, deformed, discolored fungal toenails . Identifies bilateral great toes with gradual progressive deformity and fungal changes over the past year or so. Recently has noted mild discoloration [...] contributing/aggravating factors, treatment strategy, rationale and objectives. Fox agreement to proceed with initial 90 day [...] of any cryptotic margins, all periungual debris; providing effective symptom and pressure relief; reducing shoe and [...] Eliceo Greer DPM documented in this encounter [facility] Instructions 04-26-2025 Patient Instructions Note Date & Type Note Facility 04-26-2025 Instructions Eliceo Greer DPM - 04/26/2025 8:45 AM EDT As noted documented in this encounter [facility] History of Present illness Narrative 06-22-2024 HARPER Amato - 06/22/2024 1:00 PM EDT Note Date & Type Note Facility 06-22-2024 History of Presen t illness Narrative Reason for Appointment: Patient ID: Claribel Desouza is a 38 y.o. female who presents for Well Women Visit Patient presents today for Annual Exam. MEDICATIONS Current Outpatient Medications Medication Instructions Apri 0.15-30 MG-MCG tablet TAKE 1 TABLET BY MOUTH EVERY DAY FOR 28 DAYS ALLERGIES No Known Allergies PROBLEMS Active Ambulatory Problems Diagnosis Date Noted No Active Ambulatory Problems Resolved Ambulatory Problems Diagnosis Date Noted No Resolved Ambulatory Problems No Additional Past Medical History HISTORY PAST MEDICAL HISTORY SOCIAL HISTORY History reviewed. No pertinent past medical history. Social History Tobacco Use Smoking status: Not on file Smokeless tobacco: Not on file Substance Use Topics Alcohol use: Not on file Drug use: Not on file FAMILY HISTORY No family history on file. SURGICAL HISTORY History reviewed. No pertinent surgical history. REVIEW OF SYSTEMS Review of Systems: Review of Systems Constitutional: Negative. HENT: Negative. Eyes: Negative. Respiratory: Negative. Cardiovascular: Negative. Gastrointestinal: Negative. Genitourinary: Negative. Musculoskeletal: Negative. Skin: Negative. Neurological: Negative. All other systems reviewed and are negative. Hematological: Negative. Endocrine: Negative. Allergic/Immunologic: Negative. OBJECTIVE Objective: Physical Exam Constitutional: Appearance: Normal appearance. She is normal weight. Genitourinary: Right Adnexa: not tender and no mass present. Left Adnexa: not tender and no mass present. No cervical discharge. Breasts: Breasts are soft. Right: Normal. Left: Normal. HENT: Head: Normocephalic. Nose: Nose normal. Mouth/Throat: Mouth: Mucous membranes are moist. Cardiovascular: Rate and Rhythm: Normal rate. Pulses: Normal pulses. Pulmonary: Effort: Pulmonary effort is normal. Breath sounds: Normal breath sounds. Abdominal: General: Bowel sounds are normal. Palpations: Abdomen is soft. Musculoskeletal: General: Normal range of motion. Cervical back: Normal range of motion. Neurological: General: No focal deficit present. Mental Status: She is alert and oriented to person, place, and time. Skin: General: Skin is warm and dry. Psychiatric: Mood and Affect: Mood normal. Behavior: Behavior normal. Thought Content: Thought content normal. Judgment: Judgment normal. Vitals and nursing note reviewed. Exam conducted with a foil spinner present. Vitals: Estimated body mass index is 20.46 kg/m as calculated from the following: Height as of 01/09/23: 5' 4 . Weight as of this encounter: 119 lb 3.2 oz. BP: 112/70 No LMP recorded. ASSESSMENT & PLAN ICD-10-CM 1. Well woman exam with routine gynecological exam Z01.419 THIN PREP TIS PAP AND HR HPV DNA 2. Breast cancer screening by mammogram Z12.31 Bilateral screening mammogram Bilateral screening mammogram Annual: Patient presents today for an annual exam. Patient states she is doing well and has no complaints. Pap was obtained without difficulty and patient given mammogram order to have scheduled/obtained. Orders Placed This Encounter Procedures Bilateral screening mammogram Follow Up: Patient is to return in one year for annual unless needed otherwise. Documented by HARPER Amato on behalf of: HARPER Amato documented in this encounter [facility] Evaluation note Note Date & Type Note Facility Evaluation note Diagnosis Well woman exam with routine gynecological exam Routine gynecological examination Breast cancer screening by mammogram documented in this encounter [facility] Evaluation note Note Date & Type Note Facility Evaluation note Diagnosis Dermatophytosis of nail- Primary Dystrophic nail Other specified disease of nail Pain around toenail, right foot Pain around toenail, left foot documented in this encounter [facility] Summary Purpose Family History No Family History Records FoundNo Family History Records Found Advance Directives No Advanced Directives Records FoundNo Advanced Directives Records Found Additional Source Comments INFORMATION SOURCE (unrecogn ized section and content) DATE CREATED AUTHOR 01/21/2023 [facility] DATE CREATED AUTHOR AUTHOR'S ORGANIZ ATION 06/23/2024 [facility] Care Teams (unrecognized sec tion and content) Process Project Engineer Relationship Specialty Start Date End Date Pamela Means MD [address] [facility] [address] [place] [address] PCP - General Family Medicine 02/25/23 Process Project Engineer Relationship Specialty Start Date End Date Pamela Means MD [address] [facility] [address] [place] [address] PCP - General Family Medicine 02/25/23 Process Project Engineer Relationship Specialty Start Date End Date Pamela Means MD [address] [facility] [address] [place] [address] PCP - General Family Medicine 02/25/23 Citlaly Velazquez PA [address] [place] [address] [place] [address] PCP - Medical [employer] 02/18/24 10/19/99 Process Project Engineer Relationship Specialty Start Date End Date Pamela Means MD [address] [facility] [address] [place] [address] PCP - General Family Medicine 02/25/23 Citlaly Velazquez PA [address] [place] [address] [place] [address] PCP - Medical [employer] 02/18/24 10/19/99 Reason for Visit (unrecogniz ed section and content) Reason Comments Well Women Visit Reason Comments 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 RGT nail removed a few years ago. Patient states she's tried OTC treatments in the past, but nothing recent. FOR RECORDS PERTAINING TO PATIENTS WHO ARE [...] BE BASED ON THE PRIMARY CLINICAL RECORDS. [facility] [employer] [facility]. provides no warranty or guarantee of the accuracy or completeness of information in this document.
[2025-04-29 12:41] LABS: Aspartate Amino Transferase 15 U/L (15-37)
== END 2025-04-29 11:35 | disposition home or self-care (01) ==
LOC: LAB 11:35
PROVIDERS: PCP Family Medicine; Visit Provider Podiatrist
DX: B35.1 Tinea unguium (principal); L60.3 Nail dystrophy; M79.674 Pain in right toe(s); M79.675 Pain in left toe(s)
CPT/HCPCS: 36415; 84450

== ENCOUNTER 2025-06-27 14:38 | Outpatient (REF) | payer OTHER, SELFPAY ==
--- OUTSIDE RECORDS SUMMARY | 2025-06-27 08:30 | XMS_ITS | Encounter Summary ---
Author Organization [facility] Address [address] [facility] [place] [address] Care Team Providers Care Trial Manager Name Role Phone Pamela Means MD Primary Care Provider [phone] [facility] Unavailable Reason for Visit * Reason Comments Gynecologic Exam Encounter Details Date Type Department Care Team (Latest Contact Info) Description 06/27/2025 8:30 AM EDT Procedure Visit [facility]EL Esp[facility]za O[facility] [address] [place] [address] Jesika Padron, [place] [address] [facility] [place] [address] Well woman exam with routine gynecological exam; Breast cancer screening by mammogram Social History Tobacco Use Types Packs/Day Years Used Date Smoking Tobacco: Never Smokeless Tobacco: Never Alcohol Use Standard Drinks/Week Comments Yes 0 (1 standard drink = 0.6 oz pur e alcohol) occasionally Comments No Sex and Gender Information Value Date Recorded Sex Assigned at Female 01/12/2024 11:12 AM EDT Legal Sex Female 11:12 AM EDT Gender Identity Female 01/12/2024 11:12 AM EDT Sexual Orientation Not on file documented as of this encounter Last Filed Vital Signs Vital Sign Reading Time Taken Comments Blood Pressure 102/64 06/27/2025 8:40 AM EDT Pulse - - Temperature - - Respiratory Rate - - Oxygen Saturation - - Inhaled Oxygen Concentration - - Weight 55.3 kg (122 lb) 06/27/2025 8:40 AM EDT Height 162.6 cm (5' 4 ) 06/27/2025 8:40 AM EDT Body Mass Index 20.94 06/27/2025 8:40 AM EDT documented in this encounter Progress Notes * Rakel ObregonJOSS feliciano - 06/27/2025 8:30 AM EDT Reason for Appointment: Patient ID: Claribel Desouza is a 39 y.o. female who presents for Gynecologic Exam Patient presents today for Annual Exam. MEDICATIONS Current Outpatient Medications Medication Instructions Apri 0.15-30 MG-MCG tablet TAKE 1 TABLET BY MOUTH EVERY DAY FOR 28 DAYS terbinafine (LAMISIL) 250 mg, Oral, Daily ALLERGIES No Known Allergies PROBLEMS Active Ambulatory Problems Diagnosis Date Noted No Active Ambulatory Problems Resolved Ambulatory Problems Diagnosis Date Noted No Resolved Ambulatory Problems No Additional Past Medical History HISTORY PAST MEDICAL HISTORY SOCIAL HISTORY No past medical history on file. Social History Tobacco Use Smoking status: Never Smokeless tobacco: Never Substance Use Topics Alcohol use: Yes Comment: occasionally Drug use: Defer FAMILY HISTORY Family History Problem Relation Name Age of Onset No Known Problems Mother No Known Problems Father SURGICAL HISTORY Past Surgical History: Procedure Laterality Date SECTION, CLASSIC 07/2012 REVIEW OF SYSTEMS Review of Systems: Review of Systems Constitutional: Negative. HENT: Negative. Eyes: Negative. Respiratory: Negative. Cardiovascular: Negative. Gastrointestinal: Negative. Genitourinary: Negative. Musculoskeletal: Negative. Skin: Negative. Neurological: Negative. All other systems reviewed and are negative. Hematological: Negative. Endocrine: Negative. Allergic/Immunologic: Negative. OBJECTIVE Objective: Physical Exam Constitutional: Appearance: Normal appearance. She is well-developed. Genitourinary: Vulva normal. Breasts: Breasts are soft. Right: Normal. Left: Normal. Cardiovascular: Rate and Rhythm: Normal rate and regular rhythm. Pulmonary: Effort: Pulmonary effort is normal. Breath sounds: Normal breath sounds. Abdominal: General: Bowel sounds are normal. There is no distension. Palpations: Abdomen is soft. Tenderness: There is no abdominal tenderness. There is no guarding or rebound. Musculoskeletal: General: No swelling. Normal range of motion. Right lower leg: No edema. Left lower leg: No edema. Neurological: Mental Status: She is alert and oriented to person, place, and time. Skin: General: Skin is warm and dry. Psychiatric: Mood and Affect: Mood normal. Behavior: Behavior normal. Vitals and nursing note reviewed. Exam conducted with a car park attendant present. Vitals: Estimated body mass index is 20.94 kg/m?? as calculated from the following: Height as of this encounter: 5' 4 . Weight as of this encounter: 122 lb. BP: 102/64 Patient's last menstrual period was 06/03/2025 (approximate). ASSESSMENT & PLAN ICD-10-CM 1. Well woman [...] for annual unless needed otherwise. Documented by Rakel Arroyo LPN on behalf of: Jesika Padron NP documented in this encounter Plan of Treatment Upcoming Encounters Date Type Department Care Team (Late st Contact Info) Description 07/27/2025 8:30 AM EDT Procedure Visit [facility]EL Lorenzo Podiat[facility] [address] [place] [address] Eliceo Greer, DPM [address] [place] [address] 07/03/2026 10:00 AM EDT Procedure Visit [facility]ABEL [place] OBG[facility] [address] [place] [address] Angel Butler DO [address] [facility] [place] [address] Scheduled Orders Name Type Priority Associated Diagnoses Orde r Schedule Bilateral screening mammogram Imaging Routine Breast cancer screening by mammogram Expected: 06/27/2025 (Approximate), Expires: 08/27/2026 THIN PREP TIS PAP AND HR HPV DNA Pathology and Cytology Routine Well woman exam with routine gynecological exam Ordered: 06/27/2025 documented as of this encounter Visit Diagnoses Diagnosis Well woman exam with routine gynecological exam Routine gynecological examination Breast cancer screening by mammogram documented in this encounter Care Teams Trial Manager Relationship Specialty Start Date End Date Pamela Means MD [address] [address] PCP - General Family Medicine 02/25/23 [facility] PA [address] [facility] [place] [address] PCP - Medical [place] [employer] 02/18/24 10/19/99 documented as of this encounter
--- OUTSIDE RECORDS SUMMARY | 2025-06-27 14:41 | XMS_ITS | Encounter Summary ---
Author Organization [facility] Address [address] [facility] [place] [address] Care Team Providers Care Operations Coordinator Name Role Phone Pamela Means MD Primary Care Provider [phone] [facility] Unavailable Encounter Details Date Type Department Care Team ([facility] Contact Info) Description 06/28/2024 Orders Only ISABEL BONNER [address] [facility] [place] [address] Aleida Bran LPN [address] [place] [address] Social History Tobacco Use Types Packs/Day Years Used Date Smoking Tobacco: Never Assessed Comments Unknown Sex and Gender Information Value Date Recorded Sex Assigned at Female 01/12/2024 11:12 AM EDT Legal Sex Female 11:12 AM EDT Gender Identity Female 01/12/2024 11:12 AM EDT Sexual Orientation Not on file documented as of this encounter Plan of Treatment Upcoming Encounters Date Type Department Care Team ([facility] Contact Info) Description 07/27/2025 8:30 AM EDT Procedure Visit [facility] Podiat[facility] [address] [place] [phone] Eliceo Greer DPM [address] [place], [place] [phone] 07/03/2026 10:00 AM EDT Procedure Visit NOMLilian BONNER [address] [place] [address] Angel Butler DO [address] [place], [place] [id number] documented as of this encounter Procedures Procedure Name Priority Date/Time Associated Diagnosis Comments PAP SMEAR Routine 06/22/2024 12:00 AM EDT documented in this encounter Results * Pap Smear (06/22/2024 12:00 AM EDT) Swab Cervical swab / Unknown Angel Butler DO LAB CYTOLOGY ORDERABLES Final Re sult EXTERNAL LAB documented in this encounter Visit Diagnoses Not on filedocumented in this encounter Care Teams Operations Coordinator Relationship Specialty Start Date End Date Pamela Means MD [address] [facility] [address] [place] [address] PCP - General Family Medicine 02/25/23 [facility] PA [address] [place], [place] [id number] PCP - Medical [place] [employer] 02/18/24 10/19/99 documented as of this encounter
--- OUTSIDE RECORDS SUMMARY | 2025-06-27 14:41 | XMS_ITS | Encounter Summary ---
Author Organization [facility] Address [address] [facility] [place] [address] Care Team Providers Care Duplicating Machine Servicer Name Role Phone Pamela Means MD Primary Care Provider [phone] [facility] Unavailable Encounter Details Date Type Department Care Team (Late st Contact Info) Description 06/30/2024 Clinisync Result Encounter [facility] External Department Unsolicited [facility] PA [address] [place], [place] [id number] Social History Tobacco Use Types Packs/Day Years [...] Department Care Team (Late Contact Info) Description 07/27/2025 8:30 AM EDT Procedure Visit [facility] [address] [place] [address] Eliceo Greer DPM [address] [place], [place] [address] 07/03/2026 10:00 AM EDT Procedure Visit [facility] [address] [facility] [place] [address] Angel Butler DO [address] [facility] [address] [place] [place] [id number] documented as of this encounter Procedures Procedure Name Priority Date/Time Associated Diagnosis Comments MM TOMOSYNTHESIS SCREENING BI 06/30/2024 9:16 AM EDT documented in this encounter Results * MM TOMOSYNTHESIS SCREENING BI (06/30/2024 9:16 AM EDT) Anatomical Region Laterality Modality Other 06/30/2024 9:16 AM EDT Narrative 06/30/2024 9:17 AM EDT The [address] [address] Mammography Report Signed Patient: CLARIBEL DESOUZA MR#: [id number] : 1985 Acct:[id number] Age/Sex: 38 / F ADM Date: 06/30/24 Loc: MAMMO Attending Dr: [facility] Ordering Physician: [facility] Results: Date of Service: 06/30/24 Follow Up: Procedure(s): MM tomosynthesis screening BI Accession Number(s): [id number] cc: [facility]; Physician,Non-Staff M.D. Patient Name: CLARIBEL DESOUZA MR#: [id number] : 1985 Exam Date: 06/30/2024 Ordering Doctor: HARPER [facility] . RADIOLOGY REPORT PROCEDURE: MM TOMOSYNTHESIS SCREENING BI COMPARISON: None. INDICATIONS: Screening Calculator Name NCI Breast Cancer Risk Assessment Tool 5 Year Breast Cancer Risk 0.60% Lifetime Breast Cancer Risk 10.20% Personal Breast Cancer No Personal Ovarian Cancer No Treatments None Family Cancers Aunt-maternal with breast cancer at age 64. LOCATION: The [facility] BREAST COMPOSITION: The breasts are extremely [...] M.D. Signed By: 06/30/24916 DD/ 5 TD/TT: Heat Reader: Procedure Note Radiology, Radiologist, MD - 06/30/2024 [place] [address] Mammography Report Signed Patient: CLARIBEL DESOUZA NMR#: [id number] : 1985Acct:[id number] Age/Sex: 38 / FADM Date: 06/30/24 Loc: MAMMO Attending Dr: [facility] Ordering Physician: Citlaly Gutiérrezults: Date of Service: 06/30/24Follow Up: Procedure(s): MM tomosynthesis screening BI Accession Number(s): [id number] cc: [facility]; Physician,Non-Staff Lili.Kathy Patient Name: CLARIBEL DESOUZA MR#: [id number] : 1985 Exam Date: 06/30/2024 Ordering Doctor: HARPER [facility] . RADIOLOGY REPORT PROCEDURE: MM TOMOSYNTHESIS SCREENING BI COMPARISON: None. INDICATIONS: Screening Calculator Name NCI Breast Cancer Risk Assessment Tool 5 Year Breast Cancer Risk 0.60% Lifetime Breast Cancer Risk 10.20% Personal Breast Cancer No Personal Ovarian Cancer No Treatments None Family Cancers Aunt-maternal with breast cancer at age 64. LOCATION: The [facility] BREAST COMPOSITION: The breasts are extremely [...] Kaye M.D. Signed By:06/30/24916 DD/ 5 TD/TT: Heat Reader: [facility] SALEEM [facility] Final Result documented in this encounter Visit Diagnoses Not on filedocumented in this encounter Care Teams Duplicating Machine Servicer Relationship Specialty Start Date End Date Pamela Means MD 112 [facility] 110 [place] [address] PCP - General Family Medicine 02/25/23 [facility] PA [address] [facility] [address] [place], [place] [phone] PCP - Medical [place] [employer] 02/18/24 10/19/99 documented as of this encounter
--- OUTSIDE RECORDS SUMMARY | 2025-06-27 14:41 | XMS_ITS | Clinical Summary ---
Author Organization [facility] Address [address] [place] [address] Care Team Providers Care Yard Demurrage Clerk Name Role Phone Pamela Means MD Primary Care Provider [phone] [facility] Unavailable Allergies No known active allergies Medications Apri 0.15-30 MG-MCG tabletIndicatio ns:Other specified health status TAKE 1 TABLET BY MOUTH EVERY DAY FOR 28 DAYS 84 tablet 3 5 Active terbinafine (LamISIL) 250 MG tabletIndicatio ns:Dermatophyto sis of nail,Dystrophic nail,Pain around toenail, right foot,Pain around toenail, left foot Take 1 tablet (250 mg) by mouth Daily 90 tablet 5 07/31/20 25 Active azithromycin (Zithromax Z-Antony) 250 MG tabletIndicatio ns:URI, acute As directed 6 tablet 5 06/27/20 25 Discontinu ed(Therapy completed) Active Problems No known active problems Encounters Date Type Department Care Team Description 06/27/2025 8:30 AM EDT Procedure Visit [facility]OM[facility]ilian BONNER [address] [facility] [place] [address] Jesika Padron NP Well woman exam with routine gynecological exam; Breast cancer screening by mammogram 06/27/2025 Bamboo flowsheet NOMLilian BONNER [address] [facility] [place] [address] Jesika Padron NP 05/02/2025 Orders Only [facility] [address] [place] [phone] Eliceo Greer DPM Dermatophytosis of nail (Primary Dx); Dystrophic nail; Pain around toenail, right foot; Pain around toenail, left foot 04/29/2025 Clinisync Result Encounter [facility] External Department Unsolicited Eliceo Greer DPM 04/26/2025 8:45 AM EDT Office Visit [facility] [address] [place] [address] lEiceo Greer DPM Dermatophytosis of nail (Primary Dx); Dystrophic nail; Pain around toenail, right foot; Pain around toenail, left foot 04/26/2025 Bamboo flowsheet [facility] [address] [place] [address] Eliceo Greer DPM 04/26/2025 Travel 04/25/2025 Travel [...] Mass Index 20.94 06/27/2025 8:40 AM EDT Plan of Treatment Upcoming Encounters Date Type Department Care Team (Late st Contact Info) Description 07/27/2025 8:30 AM EDT Procedure Visit N[facility] Lorenzo Podiat[facility] [address] [place] [phone] Eliceo Greer DPM [address] [place], [place] [address] 07/03/2026 10:00 AM EDT Procedure Visit ISABEL Esparza OBGYN [address] [facility] [place] [address] Angel Butler DO [address] [facility] [place] [address] Health Maintenance Due Date Last Done Comments Influenza Vaccine (#1) 2025 Mammogram 06/30/2025 06/30/2024 Pap Smear 06/22/2027 06/22/2024, 01/09/2023 Cervical Cancer Screening 01/10/2028 HPV/Cotest 01/10/2028 Procedures Procedure Name Priority Date/Time Associated Diagnosis Comments AST AND ALT Routine 05/02/2025 1:50 PM EDT FUNGUS CULTURE Routine 05/02/2025 1:49 PM EDT [facility] AST Routine 04/29/2025 11:48 AM EDT MM TOMOSYNTHESIS SCREENING BI 06/30/2024 9:16 AM EDT PAP SMEAR Routine 06/22/2024 12:00 AM EDT from Last 3 Months or Most Recently Relevant to Health Maintenance Results * AST AND ALT (05/02/2025 1:50 PM EDT) Eliceo Greer DPM LAB BLOOD ORDERABLES Final R esult * Fungus culture (05/02/2025 1:49 PM EDT) Blood Venous blood specimen / Unknown Eliceo Sotelo Jesús DPM LAB BLOOD ORDERABLES Final R esult * [facility] AST (04/29/2025 11:48 AM EDT) ASPARTATE AMINO TRANSFERASE 15 15 - 37 U/L [facility] 04/29/2025 11:4 8 AM EDT 04/29/2025 11:49 AM EDT Narrative [facility] - 04/29/2025 12:41 PM EDT Generic External Data Provider [facility] F inal Result [facility] * MM TOMOSYNTHESIS SCREENING BI (06/30/2024 9:16 AM EDT) Anatomical Region Laterality Modality Other 06/30/2024 9:16 AM EDT Narrative 06/30/2024 9:17 [place] [address] Mammography Report Signed Patient: CLARIBEL DESOUZA MR#: [id number] : 1985 Acct:[id number] Age/Sex: 38 / F ADM Date: 06/30/24 Loc: MAMMO Attending Dr: [facility] Ordering Physician: [facility] Results: Date of Service: 06/30/24 Follow Up: Procedure(s): MM tomosynthesis screening BI Accession Number(s): [id number] cc: [facility]; Physician,Non-Staff M.D. Patient Name: CLARIBEL DESOUZA MR#: [id number] : 1985 Exam Date: 06/30/2024 Ordering Doctor: HARPER [facility] . RADIOLOGY REPORT PROCEDURE: MM TOMOSYNTHESIS SCREENING BI COMPARISON: None. INDICATIONS: Screening Calculator Name NCI Breast Cancer Risk Assessment Tool 5 Year Breast Cancer Risk 0.60% Lifetime Breast Cancer Risk 10.20% Personal Breast Cancer No Personal Ovarian Cancer No Treatments None Family Cancers Aunt-maternal with breast cancer at age 64. LOCATION: The [facility] BREAST COMPOSITION: The breasts are extremely [...] M.D. Signed By: 06/30/24916 DD/ 5 TD/TT: Weather Stripper: Procedure Note Radiology, Radiologist, MD - 06/30/2024 [place] [address] Mammography Report Signed Patient: CLARIBEL DESOUZA NMR#: [id number] : 1985Acct:[id number] Age/Sex: 38 / FADM Date: 06/30/24 Loc: MAMMO Attending Dr: [facility] Plaza Ordering Physician: Citlaly PlazaResults: Date of Service: 06/30/24Follow Up: Procedure(s): MM tomosynthesis screening BI Accession Number(s): [id number] cc: [facility]; Physician,Non-Staff Murtaza Patient Name: CLARIBEL DESOUZA MR#: [id number] : 1985 Exam Date: 06/30/2024 Ordering Doctor: HARPER Plaza . RADIOLOGY REPORT PROCEDURE: MM TOMOSYNTHESIS SCREENING BI COMPARISON: None. INDICATIONS: Screening Calculator Name NCI Breast Cancer Risk Assessment Tool 5 Year Breast Cancer Risk 0.60% Lifetime Breast Cancer Risk 10.20% Personal Breast Cancer No Personal Ovarian Cancer No Treatments None Family Cancers Aunt-maternal with breast cancer at age 64. LOCATION: The [facility] BREAST COMPOSITION: The breasts are extremely [...] Kaye M.D. Signed By:06/30/24916 DD/ 5 TD/TT: Weather Stripper: us [facility] Final Result * Pap Smear (06/22/2024 12:00 AM EDT) Swab Cervical swab / Unknown us Angel Butler DO LAB CYTOLOGY ORDERABLES Final Re sult EXTERNAL LAB from Last 3 Months or Most Recently Relevant to Health Maintenance Insurance [employer] Care Teams Yard Demurrage Clerk Relationship Specialty Start Date End Date Pamela Means MD [address] [facility] [place] [address] PCP - General Family Medicine 02/25/23 [facility] PA [address] [place] [address] [place] [address] PCP - Medical [place] [employer] 02/18/24 10/19/99
--- OUTSIDE RECORDS SUMMARY | 2025-06-27 14:41 | XMS_ITS | Encounter Summary ---
Author Organization [facility] Address [address] [place] [address] Care Team Providers Care Coat Fitter Name Role Phone Pamela Means MD Primary Care Provider [phone] [facility] Unavailable Encounter Details Date Type Department Care Team (Late Contact Info) Description 09/21/2024 [facility] [address] [facility] 110 [place] [phone] Pamela Means MD [address] [facility] 110 [place] [address] Social History Tobacco Use Types Packs/Day Years [...] Procedure Visit [facility] [address] [place] [address] Eliceo Greer, DPLili [address] [place], [place] [address] 07/03/2026 10:00 AM EDT Procedure Visit ISABEL BONNER [address] [place] [address] Angel Butler DO [address] [place] [address] documented as of this encounter Visit Diagnoses Not on filedocumented in this encounter Care Teams Coat Fitter Relationship Specialty Start Date End Date Pamela Means MD 112 [facility] 110 [place] [address] PCP - General Family Medicine 02/25/23 [facility] PA [address] [place] [address] PCP - Medical [place] [employer] 02/18/24 10/19/99 documented as of this encounter
--- OUTSIDE RECORDS SUMMARY | 2025-06-27 14:41 | XMS_ITS | Encounter Summary ---
Author Organization [facility] Address [address] [facility] [place] [address] Care Team Providers Care Solar Energy System Installer Helper Name Role Phone Pamela Means MD Primary Care Provider [phone] [facility] Unavailable Encounter Details Date Type Department Care Team (Late Contact Info) Description 06/27/2025 Bamboo flowsheet ISABEL Esparza OBGYN [address] [facility] [place] [address] Jesika Padron, [place]AM[place] [address] [facility] [place] [address] Social History Tobacco Use Types Packs/Day Years [...] Upcoming Encounters Date Type Department Care Team ([facility] Contact Info) Description 07/27/2025 8:30 AM EDT Procedure Visit [facility] Podiatry [address] [place] [phone] Eliceo Greer DPM [address] [place], [place] [address] 07/03/2026 10:00 AM EDT Procedure Visit [facility]S Isaias BONNER [address] [facility] [place] [address] Angel Butler DO [address] [facility] [place] [address] documented as of this encounter Visit Diagnoses Not on filedocumented in this encounter Care Teams Solar Energy System Installer Helper Relationship Specialty Start Date End Date Pamela Means MD 112 [facility] 110 [place] [address] PCP - General Family Medicine 02/25/23 [facility] PA [address] [facility] [address] [place], [place] [id number] PCP - Medical [place] [employer] 02/18/24 10/19/99 documented as of this encounter
[2025-06-29 14:10] LABS: Age Gdln ACOG Testing Note (.); IGP, Aptima HPV, rfx 16/18,45 Note (.)
== END 2025-06-27 14:39 | disposition home or self-care (01) ==
LOC: LAB 14:38
PROVIDERS: PCP Family Medicine; Visit Provider Nurse Practitioner Family
DX: Z01.419 Encounter for gynecological examination (general) (routine) without abnormal findings (principal)
CPT/HCPCS: 87624; 88175

== ENCOUNTER 2025-07-25 09:22 | Outpatient (OUT) | payer OTHER, SELFPAY ==
--- OUTSIDE RECORDS SUMMARY | 2025-07-25 09:24 | XMS_ITS | Encounter Summary ---
Author Organization [facility] Address [address] [facility] [place] [address] Care Team Providers Care Securities Supervisor Name Role Phone Pamela Means MD Primary Care Provider [phone] [facility] Unavailable Encounter Details Date Type Department Care Team (Late st Contact Info) Description 06/30/2024 Clinisync Result Encounter NOMS External Department Unsolicited Citlaly Plaza PA [address] [place], [place] [address] Social History Tobacco Use Types Packs/Day Years [...] Procedure Visit [facility] [address] [facility] [place] [phone] Eliceo Greer DPM [address] [place], [place] [id number] 07/03/2026 10:00 AM EDT Procedure Visit [facility] [address] [facility] [place] [address] Angel Butler DO [address] [facility] [address] Adalberto [place] [id number] documented as of this encounter Procedures Procedure Name Priority Date/Time Associated Diagnosis Comments MM TOMOSYNTHESIS SCREENING BI 06/30/2024 9:16 AM EDT documented in this encounter Results * MM TOMOSYNTHESIS SCREENING BI (06/30/2024 9:16 AM EDT) Anatomical Region Laterality Modality Other 06/30/2024 9:16 AM EDT Narrative 06/30/2024 9:17 AM EDT The [address] [address] Mammography Report Signed Patient: CLARIBEL DESOUZA MR#: [id number] : 1985 Acct:[id number] Age/Sex: 38 / F ADM Date: 06/30/24 Loc: MAMMO Attending Dr: Citlaly Plaza Ordering Physician: Citlaly [facility] Results: Date of Service: 06/30/24 Follow Up: Procedure(s): MM tomosynthesis screening BI Accession Number(s): [id number] cc: [facility]; Physician,Non-Staff M.D. Patient Name: CLARIBEL DESOUZA MR#: [id number] : 1985 Exam Date: 06/30/2024 Ordering Doctor: HARPER Plaza . RADIOLOGY REPORT PROCEDURE: MM TOMOSYNTHESIS SCREENING BI COMPARISON: None. INDICATIONS: Screening Calculator Name NCI Breast Cancer Risk Assessment Tool 5 Year Breast Cancer Risk 0.60% Lifetime Breast Cancer Risk 10.20% Personal Breast Cancer No Personal Ovarian Cancer No Treatments None Family Cancers Aunt-maternal with breast cancer at age 64. LOCATION: [facility] BREAST COMPOSITION: The breasts are extremely [...] M.D. Signed By: 06/30/24916 DD/ 5 TD/TT: Financial Data Analyst: Procedure Note Radiology, Radiologist, MD - 06/30/2024 [place] [address] Mammography Report Signed Patient: CLARIBEL DESOUZA NMR#: [id number] : 1985Acct:[id number] Age/Sex: 38 / FADM Date: 06/30/24 Loc: MAMMO Attending Dr: Citlaly Plaza Ordering Physician: Citlaly Gutiérrezults: Date of Service: 06/30/24Follow Up: Procedure(s): MM tomosynthesis screening BI Accession Number(s): [id number] cc: [facility]; Physician,Non-Staff Lili.Kathy Patient Name: CLARIBEL DESOUZA MR#: [id number] : 1985 Exam Date: 06/30/2024 Ordering Doctor: HARPER Plaza . RADIOLOGY REPORT PROCEDURE: MM TOMOSYNTHESIS SCREENING BI COMPARISON: None. INDICATIONS: Screening Calculator Name NCI Breast Cancer Risk Assessment Tool 5 Year Breast Cancer Risk 0.60% Lifetime Breast Cancer Risk 10.20% Personal Breast Cancer No Personal Ovarian Cancer No Treatments None Family Cancers Aunt-maternal with breast cancer at age 64. LOCATION: [facility] BREAST COMPOSITION: The breasts are extremely [...] Kaye M.D. Signed By:06/30/24916 DD/ 5 TD/TT: Financial Data Analyst: [facility] SALEEM [facility] IMAGING Final Result documented in this encounter Visit Diagnoses Not on filedocumented in this encounter Care Teams Securities Supervisor Relationship Specialty Start Date End Date Pamela Means MD [address] [facility] 110 [place] [address] PCP - General Family Medicine 02/25/23 Citlaly Plaza PA [address] [facility] [address] [place], [place] [phone] PCP - Medical [place] [employer] 02/18/24 10/19/99 documented as of this encounter
--- OUTSIDE RECORDS SUMMARY | 2025-07-25 09:24 | XMS_ITS | Encounter Summary ---
Author Organization [facility] Address [address] [place] [facility] [place] [address] Care Team Providers Care Perinatal Specialist Name Role Phone Pamela Means MD Primary Care Provider [phone] [facility] Unavailable Encounter Details Date Type Department Care Team (Late Contact Info) Description 09/21/2024 Abstract [facility] [address] [place] [address] [place] [phone] Pamela Means MD [address] [facility] 110 [place] [address] Social History Tobacco Use Types Packs/Day Years [...] Procedure Visit [facility] [address] [place] [address] Eliceo Greer, DPLili [address] [place], [place] [id number] 07/03/2026 10:00 AM EDT Procedure Visit ISABEL BONNER [address] [place] [address] Angel Butler DO [address] [place] [address] documented as of this encounter Visit Diagnoses Not on filedocumented in this encounter Care Teams Perinatal Specialist Relationship Specialty Start Date End Date Pamela Means MD 112 [facility] 110 [place] [address] PCP - General Family Medicine 02/25/23 [facility] PA [address] [place] [address] PCP - Medical [employer] 02/18/24 10/19/99 documented as of this encounter
--- OUTSIDE RECORDS SUMMARY | 2025-07-25 09:24 | XMS_ITS | Encounter Summary ---
Author Organization [facility] Address [address] [facility] [place] [address] Care Team Providers Care Beauty Artist Name Role Phone Pamela Means MD Primary Care Provider [phone] [facility] Unavailable Encounter Details Date Type Department Care Team (Late Contact Info) Description 07/05/2025 Orders Only ISABEL Esparza OBGYN [address] [place] [address] Roxann Patino LPN [address] [place] [address] Social History Tobacco Use Types [...] Procedure Visit [facility] [address] [place] [phone] Eliceo Greer DPM [address] [place], [place] [address] 07/03/2026 10:00 AM EDT Procedure Visit [facility] [address] [facility] [place] [address] Angel Butler DO 102 [place] [address] documented as of this encounter Procedures Procedure Name Priority Date/Time Associated Diagnosis Comments PAP SMEAR Routine 06/27/2025 12:00 AM EDT documented in this encounter Results * Pap Smear (06/27/2025 12:00 AM EDT) Swab Cervical swab / Unknown Carrie Nurse Noms Bcp Ob LAB CYTOLOGY ORDERABLES Final Result EXTERNAL LAB documented in this encounter Visit Diagnoses Not on filedocumented in this encounter Care Teams Beauty Artist Relationship Specialty Start Date End Date Pamela Means MD 112 [facility] 110 [place] [address] PCP - General Family Medicine 02/25/23 [facility] PA [address] [place], [place] [phone] PCP - Medical [place] [employer] 02/18/24 10/19/99 documented as of this encounter
--- OUTSIDE RECORDS SUMMARY | 2025-07-25 09:24 | XMS_ITS | Encounter Summary ---
Author Organization [facility] Address [address] [facility] [place] [address] Care Team Providers Care Conservation Assistant Name Role Phone Pamela Means MD Primary Care Provider [phone] [facility] Unavailable Encounter Details Date Type Department Care Team ([facility] Contact Info) Description 06/28/2024 Orders Only ISABEL BONNER [address] [place] [address] Aleida Bran LPN [address] [place] [address] Social History Tobacco Use Types [...] Upcoming Encounters Date Type Department Care Team ([facility] Contact Info) Description 07/27/2025 8:30 AM EDT Procedure Visit [facility] [address] [place] [address] Eliceo Greer DPM 1900 [place], [place] [address] 07/03/2026 10:00 AM EDT Procedure Visit NOMLilian BONNER [address] [place] [address] Angel Butler DO [address] [place], [place] [address] documented as of this encounter Procedures Procedure Name Priority Date/Time Associated Diagnosis Comments PAP SMEAR Routine 06/22/2024 12:00 AM EDT documented in this encounter Results * Pap Smear (06/22/2024 12:00 AM EDT) Swab Cervical swab / Unknown Angel Butler DO LAB CYTOLOGY ORDERABLES Final Re sult EXTERNAL LAB documented in this encounter Visit Diagnoses Not on filedocumented in this encounter Care Teams Conservation Assistant Relationship Specialty Start Date End Date Pamela Means MD 112 [facility] 110 [place] [address] PCP - General Family Medicine 02/25/23 [facility] PA [address] [place], [place] [id number] PCP - Medical [place] [employer] 02/18/24 10/19/99 documented as of this encounter
--- OUTSIDE RECORDS SUMMARY | 2025-07-25 09:24 | XMS_ITS | Clinical Summary ---
Author Organization [facility] Address [address] [place] [address] Care Team Providers Care Heating Operators Engineer Name Role Phone Pamela Means MD Primary Care Provider [phone] [facility] Unavailable Allergies No known active [...] Encounters Date Type Department Care Team Description 07/05/2025 Orders Only NOMLilian BONNER [address] [place] [address] Roxann Patino LPN 06/27/2025 8:30 AM [place] [address] Jesika Padron NP Well woman exam with routine gynecological exam; Breast cancer screening by mammogram 06/27/2025 Clinisync Result Encounter NOMS External Department Unsolicited Jesika Padron, [place] 06/27/2025 Bamboo flowsheet ISABEL BONNER [address] [place] [address] [place] [address] Jesika Padron, [place] 05/02/2025 Orders Only [facility] [address] [place] [address] Eliceo Greer, MELANIE Dermatophytosis of nail (Primary Dx); Dystrophic nail; Pain around toenail, right foot; Pain around toenail, left foot 04/29/2025 Clinisync Result Encounter NOMS External Department Unsolicited Eliceo Greer DPM 04/26/2025 8:45 AM EDT Office Visit NOMLilian Lorenzo Podiat[facility] [address] [place] [address] Eliceo Greer DPM Dermatophytosis of nail (Primary Dx); Dystrophic nail; Pain around toenail, right foot; Pain around toenail, left foot 04/26/2025 Bamboo flowsheet [facility] [address] [place] [address] Eliceo Greer DPM 04/26/2025 Travel 04/25/2025 Travel from Last 3 Months Family History [...] EDT Procedure Visit ISABEL Lorenzo [facility]iat[facility] [address] [place] [address] Eliceo Greer, DPM 0 [place] [address] 07/03/2026 10:00 AM EDT Procedure Visit ISABEL Esparza OBGYN [address] [facility] [place] [address] Angel Butler DO [address] [facility] [address] Adalberto [place], [place] [address] Health Maintenance Due Date Last Done Comments Influenza Vaccine (#1) 2025 Mammogram 06/30/2025 06/30/2024 Cervical Cancer Screening 01/10/2028 HPV/Cotest 01/10/2028 Pap Smear 06/27/2028 06/27/2025, 06/22/2024, 12/19 Procedures Procedure Name Priority Date/Time Associated Diagnosis Comments IGP,APTIMA HPV,AGE GDLN Routine 06/27/2025 8:30 AM EDT PAP SMEAR Routine 06/27/2025 12:00 AM EDT AST AND ALT Routine 05/02/2025 1:50 PM EDT FUNGUS CULTURE Routine 05/02/2025 1:49 PM EDT [facility] AST Routine 04/29/2025 11:48 AM EDT MM TOMOSYNTHESIS SCREENING BI 06/30/2024 9:16 AM EDT from Last 3 Months or Most Recently Relevant to Health Maintenance Results * IGP,APTIMA HPV,AGE GDLN (06/27/2025 8:30 AM EDT) AGE HALLIE AC TESTING Note . [facility] Comment: TESTS RESULT FLAG UNITS REF RANGE LAB Clinician Provided Cytology Information Source.............Cervix;Endocervix No. of containers..01 ThinPrep Vial Saji KEN Renetta... FLAG LEGEND: L-Low Normal,H-High Normal,LL-Alert Low,HH-Alert High <-Panic Low,>-Panic High,A-Abnormal,AA-Critical Abnormal Performed at: 01 =G [address] [address] Maru Durham MD, IGP, APTIMA HPV, RFX 16/18,45 Note . [facility] Comment: TESTS RESULT FLAG UNITS REF RANGE LAB DIAGNOSIS: 02 NEGATIVE FOR INTRAEPITHELIAL LESION OR MALIGNANCY. Specimen adequacy: 02 Satisfactory for evaluation. Endocervical and/or squamous metaplastic cells (endocervical component) are present. Performed by: 02 Ingrid Thakur, Supervisory Core Setter (ASC) . 02 Note: Note 02 The Pap smear is a screening test designed to aid in the detection of premalignant and malignant conditions of the uterine cervix. It is not a diagnostic procedure and should not be used as the sole means of detecting cervical cancer. Both false-positive and false-negative reports do occur. Test Methodology: Note 02 This liquid based ThinPrep(R) pap test was screened with the use of an image guided system. HPV Genotype Reflex Note 02 Criteria not met, HPV Genotype not performed. FLAG LEGEND: L-Low Normal,H-High Normal,LL-Alert Low,HH-Alert High <-Panic Low,>-Panic High,A-Abnormal,AA-Critical Abnormal Performed at: [address] [address] Maru Durham MD, HPV APTIMA Negative Negative [facility] Comment: This nucleic acid amplification test detects fourteen high- risk HPV types (16,18,31,33,35,39,45,51,52,56,58,59,66,68) without differentiation. Performed at: =[address] [id number] Physician Assistant Certified: Maru Durham MD, Phone: [phone] Performed at: [address] [id number] Physician Assistant Certified: Maru Durham MD, Phone: [phone] 06/27/2025 8:30 AM EDT 06/27/2025 2:40 PM EDT Narrative CLINISYNC - 06/29/2025 2:10 PM EDT BRUSH-SPATULA CERVIX ENDOCERVIX us Generic External Data Provider LAB BLOOD ORDERAB LES Final Result Performing Organization Address [facility] Phone Number CLINISYCT TB * Pap Smear (06/27/2025 12:00 AM EDT) Swab Cervical swab / Unknown us Carrie Nurse [facility] B[facility] Ob LAB CYTOLOGY ORDERABLES Final Result Performing Organization Address [facility] Phone Number EXTERNAL LAB * AST AND ALT (05/02/2025 1:50 PM EDT) us Eliceo Greer DP LAB BLOOD ORDERABLES Final R esult * Fungus culture (05/02/2025 1:49 PM EDT) Blood Venous blood specimen / Unknown Eliceo Greer DPM LAB BLOOD ORDERABLES Final R esult * [facility] AST (04/29/2025 11:48 AM EDT) ASPARTATE AMINO TRANSFERASE 15 15 - 37 U/L [facility] 04/29/2025 11:4 8 AM EDT 04/29/2025 11:49 AM EDT Narrative CLINISYNC - 04/29/2025 12:41 PM EDT us Generic External Data Provider CLINISYNC F inal Result Performing Organization Address [facility] Phone Number CLINISYNC TB * MM TOMOSYNTHESIS SCREENING BI (06/30/2024 9:16 AM EDT) Anatomical Region Laterality Modality Other 06/30/2024 9:16 AM EDT Narrative 06/30/2024 9:17 AM EDT The [address] [address] Mammography Report Signed Patient: CLARIBEL DESOUZA MR#: [id number] : 1985 Acct:[id number] Age/Sex: 38 / F ADM Date: 06/30/24 Loc: MAMMO Attending Dr: Citlaly Plaza Ordering Physician: Citlaly Plaza Results: Date of Service: 06/30/24 Follow Up: Procedure(s): MM tomosynthesis screening BI Accession Number(s): [id number] cc: Citlaly Plaza; Physician,Non-Staff M.DClarence Patient Name: CLARIBEL DESOUZA MR#: [id number] : 1985 Exam Date: 06/30/2024 Ordering Doctor: HARPER Plaza . RADIOLOGY REPORT PROCEDURE: MM TOMOSYNTHESIS SCREENING BI COMPARISON: None. INDICATIONS: Screening Calculator Name NCI Breast Cancer Risk Assessment Tool 5 Year Breast Cancer Risk 0.60% Lifetime Breast Cancer Risk 10.20% Personal Breast Cancer No Personal Ovarian Cancer No Treatments None Family Cancers Aunt-maternal with breast cancer at age 64. LOCATION: [facility] BREAST COMPOSITION: The breasts are extremely [...] M.D. Signed By: 06/30/24916 DD/ 5 TD/TT: Rn Patient Services: Procedure Note Radiology, Radiologist, MD - 06/30/2024 [place] [address] Mammography Report Signed Patient: CLARIBEL DESOUZA NMR#: [id number] : 1985Acct:[id number] Age/Sex: 38 / FADM Date: 06/30/24 Loc: MAMMO Attending Dr: Citlaly Plaza Ordering Physician: Citlaly PlazaResults: Date of Service: 06/30/24Follow Up: Procedure(s): MM tomosynthesis screening BI Accession Number(s): [id number] cc: Citlaly Plaza; Physician,Non-Staff Murtaza Patient Name: CLARIBEL DESOUZA MR#: [id number] : 1985 Exam Date: 06/30/2024 Ordering Doctor: HARPER Plaza . RADIOLOGY REPORT PROCEDURE: MM TOMOSYNTHESIS SCREENING BI COMPARISON: None. INDICATIONS: Screening Calculator Name NCI Breast Cancer Risk Assessment Tool 5 Year Breast Cancer Risk 0.60% Lifetime Breast Cancer Risk 10.20% Personal Breast Cancer No Personal Ovarian Cancer No Treatments None Family Cancers Aunt-maternal with breast cancer at age 64. LOCATION: [facility] BREAST COMPOSITION: The breasts are extremely [...] Kaye M.D. Signed By:06/30/24916 DD/ 5 TD/TT: Rn Patient Services: Citlaly SALEEM [facility]IN[facility] IMAGING Final Result from Last 3 Months or Most Recently Relevant to Health Maintenance Insurance [employer] Care Teams Heating Operators Engineer Relationship Specialty Start Date End Date Pamela Means MD [address] [address] PCP - General Family Medicine 02/25/23 Citlaly Plaza PA 102 [place] [address] PCP - Medical [place] [employer] 02/18/24 10/19/99
--- OUTSIDE RECORDS SUMMARY | 2025-07-25 09:40 | XMS_ITS | CCD ---
Author Organization [facility] Care Team Providers Care Materials Research Engineer Name Role Phone AUGUSTO ., DR SALAZAR Admitting Unavailable AUGUSTO ., DR SALAZAR Attending Unavailable AUGUSTO ., DR SALAZAR Consulting Unavailable Clary NARVAEZ, Pamela Pearson Primary Care Provider Citlaly Arizmendi Unavailable ELICEO GREER Attending Unavailable JESIKA PADRON Attending Unavailable Medications Current Medications Medication Drug Class(es) Dates Sig (Normalized) Sig (Original) azithromycin 250 mg oral tablet (7 sources) Macrolide Antimicrobial Start: 12-29-2024 End: 06-27-2025 azithromycin (Zithromax Z-Antony) 250 MG tablet Indications: URI, acute As directed 6 tablet 12/29/2024 06/27/2025 Discontinued (Therapy completed) desogestrel 0.15 mg / ethinyl estradiol 0.03 mg oral tablet (12 sources) Progestin, Estrogen Start: 12-20-2024 take 1 tablet by mouth once daily Apri 0.15-30 MG-MCG tablet Indications: Other specified health status TAKE 1 TABLET BY MOUTH EVERY DAY FOR 28 DAYS 84 tablet 3 12/20/2024 Active Start: 01-13-2024 take 1 tablet by janessa th once daily Apri 0.15-30 MG-MCG tablet Indications: Other specified health status TAKE 1 TABLET BY MOUTH EVERY DAY FOR 28 DAYS 84 tablet 3 01/13/2024 Active terbinafine 250 mg oral tablet (4 sources) Allylamine Antifungal Start: 05-02-2025 End: 07-31-2025 take 1 tablet by mouth once daily terbinafine (LamISIL) 250 MG tablet Indications: Dermatophytosis of nail , Dystrophic nail , Pain around toenail, right foot , Pain around toenail, left foot Take 1 tablet (250 mg) by mouth Daily 90 tablet 05/02/2025 07/31/2025 Active Problems Problem Classification Problem Date Documented Date Episodic/Chronic Immunizations and screening for infectious disease (1 source) Encounter for screening for human papillomavirus (HPV); Translations: [ENC SCREENING HUMAN PAPILLOMAVIRUS] Onset: 01-12-2023 Episodic Mycoses (3 sources) Onychomycosis due to dermatophyte ; Translations: [Tinea unguium] 04-26-2025 Episodic Other connective tissue disease (6 sources) Pain in toe; Translations: [Pain in right toe(s)] 04-26-2025 Episodic Other screening for suspected conditions (not mental disorders or infectious disease) (7 sources) Encounter for screening for malignant neoplasm of cervix; Translations: [Patient encounter status] Onset: 01-09-2023 Episodic Other skin disorders (3 sources) Dystrophia unguium; Translations: [Nail dystrophy] 04-26-2025 Episodic Results Test Name Value Interpretation Reference Range Facil ity IGP,APTIMA HPV,AGE GDLNon AGE GDLN ACOG TESTING Note . [facility] Comment on above: TESTS RESULT FLAG UNITS REF RANGE LAB Clinician Provided Cytology Information Source.............Cervix;Endocervix No. of containers..01 ThinPrep Vial Age Algo ACOG Renetta... 30-65 FLAG LEGEND: L-Low Normal,H-High Normal,LL-Alert Low,HH-Alert High <-Panic Low,>-Panic High,A-Abnormal,AA-Critical Abnormal Performed at: 01 =[address] [place] [address] Maru Durham MD, HPV APTIMA Negative Negative [facility] Comment on above: This nucleic acid amplification test det ects fourteen high- risk HPV types (16,18,31,33,35,39,45,51,52,56,58,59,66,68) without differentiation. Performed at: = - [facility], [place] [id number] Program Advisor: Maru Durham MD, Phone: [phone] Performed at: - [facility], [place] [id number] Program Advisor: Maru Durham MD, Phone: [phone] IGP, APTIMA HPV, RFX 16/18,45 Note . [facility] Comment on above: TESTS RESULT FLAG UNITS REF RANGE LAB DIAGNOSIS: 02 NEGATIVE FOR INTRAEPITHELIAL LESION OR MALIGNANCY. Specimen adequacy: 02 Satisfactory for evaluation. Endocervical and/or squamous metaplastic cells (endocervical component) are present. Performed by: 02 Ingrid Thakur, Supervisory Amusement Ride Operator (ASCP) . 02 Note: Note 02 The Pap [...] <-Panic Low,>-Panic High,A-Abnormal,AA-Critical Abnormal Performed at: 02 WB [facility] [address] [place] [address] Maru Durham MD, BRUSH-SPATULA CERVIX ENDOCERVIX [facility] 04-29-2025 AST [Catalytic activity/Vol] 15 U/L 15 - 37 U/L [facility] IGP,APTIMA HPV,AGE GDLNon AGE GDLN ACOG TESTING Note . [facility] Comment on above: TESTS RESULT FLAG UNITS REF RANGE LAB Clinician Provided Cytology Information Source.............Cervix;Endocervix No. of containers..01 ThinPrep Vial Age Algo ACOG Renetta... FLAG LEGEND: L-Low Normal,H-High Normal,LL-Alert Low,HH-Alert High <-Panic Low,>-Panic High,A-Abnormal,AA-Critical Abnormal Performed at: 01 [facility] [address] [place] [address] Maru Durham MD, HPV APTIMA Negative Negative [facility] Comment on above: This nucleic acid amplification test det ects fourteen high- risk HPV types (16,18,31,33,35,39,45,51,52,56,58,59,66,68) without differentiation. Performed at: =G [facility] [address] [facility] [place] [id number] Program Advisor: Maru Durham MD, Phone: [phone] Performed at: [facility] Cyto Hist[facility] [address] [place] [id number] Program Advisor: Rico Tay MD, Phone: [phone] IGP, APTIMA HPV, RFX 16/18,45 Note . [facility] Comment on above: TESTS RESULT FLAG UNITS REF RANGE LAB DIAGNOSIS: 02 NEGATIVE FOR INTRAEPITHELIAL LESION OR MALIGNANCY. Specimen adequacy: 02 Satisfactory for evaluation. Endocervical and/or squamous metaplastic cells (endocervical component) are present. Performed by: Bradley Snyder, Stone Rougher (ASCP) . 02 Note: Note 03 The Pap [...] High,A-Abnormal,AA-Critical Abnormal Performed at: 02 [facility] [address] [place] [address] Rico Tay MD, 03 WB [facility] [address] [address] Maru Durham MD, BRUSH-SPATULA CERVIX ENDOCERVIX CLINISYNJ [facility] PAP ACOG PANEL 2: 30 to 65on 01-16-2023 . . Normal [facility] Comment on above: Result Comment: Performed at: WB Performed By: #### [id number] #### [facility] [address] [place] [address] Dr. Gutierrez Gay Age Gdln ACOG Testing 30-65 Normal [facility] Comment on above: Performed By: #### [id number] #### [facility] [address] [address] [address] Gutierrez Gay DIAGNOSIS: Comment Normal [facility] Comment on above: Result Comment: NEGATIVE FOR INTRAEPITHE LIAL LESION OR MALIGNANCY. Performed at: WB Performed By: #### [id number] #### [facility] [address] [address] [address] Gutierrez Gay HPV Aptima Negative Normal Negative [facility] Comment on above: Result Comment: This nucleic acid amplif ication test detects fourteen high-risk HPV types (16,18,31,33,35,39,45,51,52,56,58,59,66,68) without differentiation. Performed at: =G Performed By: #### 4 [id number] #### [facility] [address] [address] [address] Gutierrez Gay HPV Genotype Reflex Comment Normal [facility] Comment on above: Result Comment: Criteria not met, HPV Ge notype not performed. Performed at: WB Performed By: #### 4 [id number] #### [facility] [address] [place] [address] Dr. Gutierrez Gay Methodology: Comment Normal [facility] Comment on above: Result Comment: This liquid based ThinPr ep(R) pap test was screened with the use of an image guided system. Performed at: WB Performed By: #### [id number] #### [facility] [address] [place] [address] Dr. Gutierrez Gay Note: Comment Normal [facility] Comment on above: Result Comment: The Pap smear is a scree radha test designed to aid in the detection of premalignant and malignant conditions of the uterine cervix. It is not a diagnostic procedure and should not be used as the sole means of detecting cervical cancer. Both false-positive and false-negative reports do occur. . Performed at: WB Performed By: #### [id number] #### [facility] [address] [place] [address] Dr. Gutiererz Gay Performed by: Comment Normal [facility] Comment on above: Result Comment: Bethany Suggs Cytote chnologist (ASCP) Performed at: WB Performed By: #### 4 [id number] #### [facility] [address] [place] [address] Dr. Gutierrez Gay Specimen adequacy: Comment Normal [facility] Comment on above: Result Comment: Satisfactory for evaluat ion. Performed at: WB Performed By: #### [id number] #### [facility] [address] [place] [address] Dr. Gutierrez Gay Vital Signs Date Time Vital Sign Value Performing Clinician Faci lity 06-27-2025 08:40-0400 Body height 162.6 cm Jesika Padron CASTING OPERATOR Work Phone: [facility] 06-27-2025 08:40-0400 Body mass index (BMI) [Ratio] 20.94 kg/m2 Jesika Padron CASTING OPERATOR Work Phone: [facility] 06-27-2025 08:40-0400 Body weight 55.34 kg Jesika Padron CASTING OPERATOR Work Phone: [facility] 06-27-2025 08:40-0400 Diastolic blood pressure 64 mm[Hg] Jesika Padron CASTING OPERATOR Work Phone: [facility] 06-27-2025 08:40-0400 Systolic blood pressure 102 mm[Hg] Jesika Padron CASTING OPERATOR Work Phone: [facility] 04-26-2025 08:39-0400 Body height 162.6 cm Eliceo Greer DPM Work Phone: [facility] 04-26-2025 08:39-0400 Body mass index (BMI) [Ratio] 20.46 kg/m2 Eliceo Greer DPM Work Phone: [facility] 04-26-2025 08:39-0400 Body weight 54.07 kg Eliceo Greer DPM Work Phone: [facility] 06-22-2024 13:12-0400 Body mass index (BMI) [Ratio] 20.46 kg/m2 Citlaly Plaza PA Work Phone: [facility] 06-22-2024 13:12-0400 Body weight 54.07 kg Citlaly Mela PA Work Phone: [facility] 06-22-2024 13:12-0400 Diastolic blood pressure 70 mm[Hg] Citlaly Plaza PA Work Phone: [facility] 06-22-2024 13:12-0400 Systolic blood pressure 112 mm[Hg] Citlaly Plaza PA Work Phone: [facility] Encounters Encounter Date Encounter Type Care Provider Facility Start: 06-27-2025 End: 06-27-2025 Bamboo flowsheet Jesika Padron CASTING OPERATOR Work Phone: [facility] Isaias BONNER Start: 06-27-2025 End: 06-29-2025 Bamboo flowsheet Jesika Padron CASTING OPERATOR Work Phone: [facility] Isaias BONNER Start: 06-27-2025 End: 06-29-2025 [facility] Result Encounter Jesika Reyeserly LAMONT Work Phone: [facility] External Department Unsolicited Start: 06-27-2025 End: 06-27-2025 Patient encounter procedure Jesika Padron CASTING OPERATOR Work Phone: [facility] Start: 06-27-2025 End: 06-27-2025 Periodic preventive med est patient 40-64yrs Jesika Nereida CASTING OPERATOR Work Phone: [facility] Isaias OBANA Comment on above: Well woman exam with routine gynecological exam; Breast cancer screening by mammogram Start: 06-27-2025 End: 06-27-2025 ambulatory JESIKA PADRON Not Available Start: 05-02-2025 End: 05-02-2025 Orders Only Eliceo Greer DPM Work Phone: [facility] Comment on above: Dermatophytosis of n ail (Primary Dx); Dystrophic nail; Pain around toenail, right foot; Pain around toenail, left foot Start: 04-29-2025 End: 04-29-2025 [facility] Result Encounter Eliceo Greer DPM Work Phone: [facility] External Department Unsolicited Start: 04-29-2025 End: 04-29-2025 [facility] Result Encounter Eliceo Greer DPM Work Phone: [facility] External Department Unsolicited Start: 04-26-2025 End: 04-26-2025 Bamboo flowsheet Eliceo Greer DPM Work Phone: [facility] Start: 04-26-2025 End: 04-26-2025 Bamboo flowsheet Eliceo Greer DPM Work Phone: [facility] Start: 04-26-2025 End: 04-26-2025 Office outpatient new 30 minutes Eliceo Greer DPM Work Phone: [facility] Comment on above: Dermatophytosis of n ail (Primary Dx); Dystrophic nail; Pain around toenail, right foot; Pain around toenail, left foot Start: 04-26-2025 End: 04-26-2025 ambulatory ELICEO GREER Not Available Start: 06-22-2024 End: 06-22-2024 Bamboo flowsheet Citlaly SALEEM Work Phone: [facility] Start: 06-22-2024 End: 06-25-2024 Bamboo flowsheet Citlaly SALEEM Work Phone: [facility] Start: 06-22-2024 End: 06-25-2024 [facility] Result Encounter Citlaly SALEEM Work Phone: [facility] External Department Unsolicited Start: 06-22-2024 End: 06-22-2024 Patient encounter procedure Citlaly SALEEM Work Phone: [facility] Work Phone: Start: 06-22-2024 End: 06-22-2024 Periodic preventive med est patient 40-64yrs Citlaly SALEEM Work Phone: [facility] Comment on above: Well woman exam with routine gynecological exam; Breast cancer screening by mammogram Start: 01-09-2023 End: 01-09-[address] MARTIN BUTLER . Facility: Procedures Date Procedure Procedure Detail Performing Clinician Start: 06-27-2025 IGP,APTIMA HPV,AGE GDLN Generic External Data Provider Start: 04-29-2025 [facility] AST Eliceo corona DPM Work Phone: Start: 06-30-2024 Mammography Eliceo pereyra DPM Work Phone: Start: 06-22-2024 IGP,APTIMA HPV,AGE GDLN Citlaly SALEEM Work Phone: Start: 06-22-2024 Microscopic observat ion [Identifier] in Cervix by Cyto stain Eliceo Greer DPM Work Phone: Start: 01-09-2023 Microscopic observat ion [Identifier] in Cervix by Cyto stain Citlaly SALEEM Work Phone: Plan of Treatment Date Care Activity Detail Author Start: 01-10-2028 Screening for malign ant neoplasm of cervix [facility] Start: 06-22-2027 Screening for malign ant neoplasm of cervix Pap Smear [facility] Start: 07-03-2026 End: 07-03-2026 Patient encounter procedure 07/03/2026 10:00 AM EDT Procedure Visit [facility] [address] [id number] Martin Butler DO [address] [facility] [place] [address] [facility] Start: 07-27-2025 End: 07-27-2025 Patient encounter procedure [facility] Start: 06-30-2025 Screening for malign ant neoplasm of breast Mammogram [facility] Start: 06-27-2025 End: 08-27-2026 MG Breast - bilateral Screening Bilateral screening mammogram Imaging Routine Breast cancer screening by mammogram Expected: 06/27/2025 (Approximate), Expires: 08/27/2026 [facility] Work Phone: Comment on above: Expected: 06/27/2025 (Approximate), Expires: 08/27/2026 Start: 06-27-2025 End: 06-27-2025 Patient encounter procedure [facility] Comment on above: Arrived Start: 06-20-2025 Influenza vaccination Influenza Vacc ine (#1) [facility] Start: 04-26-2025 End: 04-26-2025 Patient encounter procedure 04/26/2025 8:45 AM EDT Office Visit [facility] [address] [place] [address] Eliceo Greer DPM [address] [place], [place] [id number] Arrived [facility] Comment on above: Arrived Start: 06-22-2024 End: 08-22-2025 MG Breast - bilateral Screening Bilateral screening mammogram Imaging Routine Breast cancer screening by mammogram Expected: 06/22/2024 (Approximate), Expires: 08/22/2025 [facility] Work Phone: Comment on above: Expected: 06/22/2024 (Approximate), Expires: 08/22/2025 Start: 06-22-2024 End: 06-22-2024 Patient encounter procedure 06/22/2024 1:00 PM EDT Office Visit [facility] [address] [address] Citlaly Plaza PA [address] [place] [address] Arrived [facility] OB Comment on above: Arrived Start: 06-20-2024 Influenza vaccination Influenza Vacc ine (#1) [facility] Start: 2023 Screening for malign ant neoplasm of breast Mammogram [facility] Alanine aminotransfe rase [Enzymatic activity/volume] in Serum or Plasma ALT Lab Routine Dermatophytosis of nail Dystrophic nail Pain around toenail, right foot Pain around toenail, left foot Ordered: 04/26/2025 [facility] Work Phone: Comment on above: Ordered: 04/26/2025 Aspartate aminotransferase [Enzymatic activity/volume] in Serum or Plasma AST Lab Routine Dermatophytosis of nail Dystrophic nail Pain around toenail, right foot Pain around toenail, left foot Ordered: 04/26/2025 [facility] Comment on above: Ordered: 04/26/2025 THIN PREP TIS PAP AN D HR HPV DNA THIN PREP TIS PAP AND HR HPV DNA Pathology and Cytology Routine Well woman exam with routine gynecological exam Ordered: 06/22/2024 [facility] Comment on above: Ordered: 06/22/2024 THIN PREP TIS PAP AN D HR HPV DNA THIN PREP TIS PAP AND HR HPV DNA Pathology and Cytology Routine Well woman exam with routine gynecological exam Ordered: 06/27/2025 [facility] Comment on above: Ordered: 06/27/2025 Payers Date Payer Category Payer Private Health Insurance [employer] [id number] 2024 Unknown [employer] [id number] 2024-Present [address] [place] [address] [id number] 2024 Unknown [id number] 1983 Unknown [id number] 1983 Unknown [id number] 1983 Unknown [id number] 1959 Unknown [id number] Social History Date Type Detail Facility Tobacco smoking stat [facility] Tobacco smoking consumption unknown [facility] Start: 1985 Sex assigned at Female [facility] Start: 01-12-2024 Gender identity Identifies as female gender (finding) [facility] Start: 04-26-2025 Sexual orientation Not on file [facility] Start: 04-26-2025 Tobacco smoking stat us [facility] Never smoked tobacco [facility] Start: 04-26-2025 Tobacco use and exposure Smokeless t obacco non-user [facility] Start: 04-26-2025 End: 06-27-2025 Alcoholic beverage intake Current drinker of alcohol (finding) [facility] Start: 04-26-2025 History of Social function [facility] Start: 04-26-2025 Alcohol Comment occasionally [facility] History of Present illness Narrative 06-27-2025 Rakel Arroyo, JOSS - 06/27/2025 8:30 AM EDT Note Date & Type Note Facility 06-27-2025 History of Presen t illness Narrative Reason [...] nursing note reviewed. Exam conducted with a multigrapher present. Vitals: Estimated body mass index is 20.94 kg/m as calculated from the following: Height [...] Jesika Padron NP documented in this encounter [facility] History of Present illness Narrative 04-26-2025 Eliceo Greer DPM - 04/26/2025 8:45 AM EDT Note Date & Type Note Facility 04-26-2025 History of Presen t illness Narrative Images from the original note were not included. Subjective Patient ID: Claribel Desouza is a 39 y.o. 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 [...] contributing/aggravating factors, treatment strategy, rationale and objectives. Tullos agreement to proceed with initial 90 day [...] Eliceo Greer DPM documented in this encounter [facility] Instructions 04-26-2025 Patient Instructions Note Date & Type Note Facility 04-26-2025 Instructions Eliceo Greer DPM - 04/26/2025 8:45 AM EDT As noted documented in this encounter [facility] History of Present illness Narrative 06-22-2024 HARPER Amato - 06/22/2024 1:00 PM EDT Note Date & Type Note Facility 06-22-2024 History of Presen t illness Narrative Reason for Appointment: Patient ID: Claribel Desouza is a 38 y.o. female who presents for [facility] Women Visit Patient presents today for Annual [...] nursing note reviewed. Exam conducted with a multigrapher present. Vitals: Estimated body mass index is [...] foot documented in this encounter [facility] Evaluation note Note Date & Type Note Facility Evaluation note Diagnosis Dermatophytosis of nail- Primary Dystrophic nail Other specified disease of nail Pain around toenail, right foot Pain around toenail, left foot documented in this encounter [facility] Evaluation note Note Date & Type Note Facility Evaluation note Diagnosis Well woman exam with routine gynecological exam Routine gynecological examination Breast cancer screening by mammogram documented in this encounter [facility] Summary Purpose Family History No Family History Records FoundNo Family History Records Found Advance Directives No Advanced Directives Records FoundNo Advanced Directives Records Found Additional Source Comments INFORMATION SOURCE (unrecogn ized section and content) DATE CREATED AUTHOR 01/21/2023 [facility] DATE CREATED AUTHOR AUTHOR'S ORGANIZ ATION 06/28/2025 [facility] d[facility] Specialists EPIC Care Teams (unrecognized sec tion and content) Materials Research Engineer Relationship Specialty Start Date End Date Pamela Means MD [address] [address] PCP - General Family Medicine 02/25/23 Materials Research Engineer Relationship Specialty Start Date End Date Pamela Means MD [address] [facility] [address] [place] [address] PCP - General Family Medicine 02/25/23 Materials Research Engineer Relationship Specialty Start Date End Date Pamela Means MD [address] [facility] [address] [place] [address] PCP - General Family Medicine 02/25/23 Citlaly Plaza PA [address] [place] [address] [place] [address] PCP - Medical [employer] 02/18/24 10/19/99 Materials Research Engineer Relationship Specialty Start Date End Date Pamela Means MD [address] [facility] [place] [address] PCP - General Family Medicine 02/25/23 Citlaly Plaza, PA [address] [place] [address] [place] [address] PCP - Medical [employer] 02/18/24 10/19/99 Materials Research Engineer Relationship Specialty Start Date End Date Pamela Means MD [address] [facility] [place] [address] PCP - General Family Medicine 02/25/23 Citlaly Plaza PA [address] [place] [address] [place] [address] PCP - Medical [employer] 02/18/24 10/19/99 Materials Research Engineer Relationship Specialty Start Date End Date Pamela Means MD [address] [facility] [place] [address] PCP - General Family Medicine 02/25/23 Citlaly Plaza, PA [address] [place] [address] [place] [address] PCP - Medical [employer] 02/18/24 10/19/99 Materials Research Engineer Relationship Specialty Start Date End Date Pamela Means MD [address] [facility] [place] [address] PCP - General Family Medicine 02/25/23 Citlaly Plaza, PA [address] [place], [place] [address]mon[address] [place] [address] PCP - Medical [employer] 02/18/24 10/19/99 Materials Research Engineer Relationship Specialty Start Date End Date Pamela Means MD [address] [facility] [place] [address] PCP - General Family Medicine 02/25/23 Citlaly Plaza PA [address] [facility] [place] [address] PCP - Medical [employer] 02/18/24 10/19/99 Reason for Visit (unrecogniz ed section and content) Reason Comments Well Women Visit Reason Comments 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 RGT nail removed a few years ago. Patient states she's tried OTC treatments in the past, but nothing recent. Reason Comments Gynecologic Exam FOR RECORDS PERTAINING TO PATIENTS WHO ARE [...] BE BASED ON THE PRIMARY CLINICAL RECORDS. [facility]. provides no warranty or guarantee of the accuracy or completeness of information in this document.
--- NOTE | 2025-07-25 09:56 | MM_ITS ---
Patient Name: TERRELL AMBROSE MR#: [id number] : 1985 Exam Date: 07/25/2025 Ordering Doctor: TYSON ALLEN CNP RADIOLOGY REPORT PROCEDURE: MM TOMOSYNTHESIS SCREENING BI COMPARISON: MM TOMOSYNTHESIS SCREENING BI, 06/30/2024. INDICATIONS: Screening Calculator Name NCI Breast Cancer Risk Assessment Tool 5 Year Breast Cancer Risk 0.60% Lifetime Breast Cancer Risk 10.10% Personal Breast Cancer No Personal Ovarian Cancer No Treatments None Family Cancers Uncle-paternal with brain cancer at age 53; Cousin-maternal with leukemia cancer at age 16; Aunt-maternal with breast cancer at age ~64. LOCATION: [facility] BREAST COMPOSITION: The breasts are extremely dense, which lowers the sensitivity of mammography. FINDINGS: RIGHT BREAST: There is a 1.5 cm asymmetry in the posterior depth right breast 5 cm from the nipple. This is superior near the 12 to 1 o'clock position. LEFT BREAST: No significant suspicious finding. DIAGNOSTIC CATEGORY 0--INCOMPLETE: NEED ADDITIONAL IMAGING EVALUATION. RECOMMENDATIONS: ADDITIONAL MAMMOGRAPHIC VIEWS REQUIRED: RIGHT BREAST - follow-up with spot compressed views of the right breast with ultrasound if necessary is recommended. Dictated by: Darrel Narvaez MD on 07/25/2025 at 17:18 Approved by: Darrel Narvaez MD on 07/25/2025 at 17:21
== END 2025-07-25 09:23 | disposition home or self-care (01) ==
LOC: MAMMO 09:22
PROVIDERS: PCP Family Medicine; Visit Provider Nurse Practitioner Family
DX: Z12.31 Encounter for screening mammogram for malignant neoplasm of breast (principal); Z80.8 Family history of malignant neoplasm of other organs or systems; Z80.6 Family history of leukemia; Z80.3 Family history of malignant neoplasm of breast; R92.8 Other abnormal and inconclusive findings on diagnostic imaging of breast
CPT/HCPCS: 77063; 77067